=== PATIENT | female | born 1945 | race Caucasian/White ===

== ENCOUNTER → 2020-08-11 14:00 | Outpatient (REF) | payer BC, SELFPAY ==
--- NOTE | 2020-08-11 14:05 | CA_ITS ---
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 The visually estimated ejection fraction is between 60-65%. - There is mild mitral valve regurgitation. - There is mild tricuspid valve regurgitation. Findings Left Ventricle Normal left ventricular cavity size. There is normal left ventricular wall thickness. The left ventricular systolic function is normal. The visually estimated ejection fraction is between 60-65%. There is no evidence of regional wall motion abnormalities. Diastolic function is normal for age. Right Ventricle Normal right ventricular cavity size and systolic function. Atria The left atrium is normal in size. The right atrium is normal in size. Aortic Valve There is a normal trileaflet aortic valve. There is no aortic valve stenosis. There is no aortic valve regurgitation. Mitral Valve The mitral valve appears normal. There is mild mitral valve regurgitation. There is no mitral valve stenosis. Pulmonic Valve The pulmonic valve was not well visualized. Tricuspid Valve Normal tricuspid valve structure. There is mild tricuspid valve regurgitation. The pulmonary artery systolic pressure is normal. Great Vessels The aortic annulus, sinuses of valsalva, and asc aorta are normal in size. Venous The inferior vena cava is normal in size and collapses less than 50% with inspiration. Pericardium/Pleural There is no evidence of pericardial effusion. Prior Study Comparison No significant change compared to prior study dated: 07/31/2019. Measurements M-Mode Liner Measurements Normals - Women/Men AOV Cusps: 1.70 1.5-2.6 cm/m2 2D Linear Measurements IVSd: 0.67 0.6-0.9/0.6-1.0 cm LVIDd: 3.78 3.9-5.3/4.2-5.9 cm LVIDd Index: 2.98 2.4-3.2/2.2-3.1 cm/m2 LVIDs: 2.34 2.0-3.6 cm LVPWd: 0.60 0.7-1.1 cm Ao Root: 2.60 2.1-3.5 cm LA Diam: 2.80 2.7-3.8/3.0-4.0 cm LAIDs Index: 2.20 1.5-2.3 cm/m2 LV Mass: 77.37 67-162/88-224 g LV Mass Index: 60.92 43-95/49-115 g/m2 LVOT Diam: 2.00 3.0+(-)1.3 cm 2D Systolic Function EF 4C: 64.70 >55% EF 2C: 61.30 >55% EF BiP: 62.00 >55% Mitral Valve MV Pk E: 0.81 MV PK A: 0.43 MV Decel Time: 259.00 E/A: 1.90 E'Lateral: 8.92 E'Medial: 7.94 E/E' Med: 10.30 E/E' Lat: 9.10 PHT: 76.00 MVA PHT: 2.89 Decel Plumas: 3.14 Aortic Valve AoV Pk Manohar: 1.40 AoV Pk Grad: 8.00 LVOT LVOT Pk Manohar: 0.87 LVOT Mn Manohar: 0.57 LVOT VTI: 0.16 LVOT Pk Grad: 3.00 LVOT Mn Grad: 2.00 LVOT Diam: 2.00 LVOT Area: 3.14 Diastolic Function MV Pk E: 0.81 MV Pk A: 0.43 E/A: 1.90 E'Medial: 7.94 E/E' Med: 10.30 E' Laterial: 8.92 E/E' Lat: 9.10 Tricuspid Valve TR Pk Manohar: 2.56 TR Pk Grad: 26.00 RA Press: 8.00 Great Vessels Aorta Ao Root-2D: 2.60 2.0-3.7 cm Ao Asc: 2.80 2.1-3.4 cm Pulmonary Valve PV Pk Manohar: 0.87 Peak PV Grad: 3.00 Updated in Other Vendor System with Status of Final Sesar Rg MD electronically signed on 08/12/2020 1:11:09 PM with status of Final
== END ==
LOC: HO.CARD 14:00
PROVIDERS: Visit Provider Internal Medicine
DX: I48.0 Paroxysmal atrial fibrillation (principal)
CPT/HCPCS: 93306

== ENCOUNTER → 2020-09-01 14:54 | Outpatient (BNVA) | payer BC, SELFPAY | PROVIDERS: PCP Internal Medicine; Visit Provider Internal Medicine ==

== ENCOUNTER → 2021-03-31 14:58 | Outpatient (BNVA) | payer BC, SELFPAY | PROVIDERS: PCP Internal Medicine; Referring Provider Internal Medicine; Visit Provider Internal Medicine | DX: I48.19 Other persistent atrial fibrillation (principal); I10 Essential (primary) hypertension; E05.90 Thyrotoxicosis, unspecified without thyrotoxic crisis or storm; R53.83 Other fatigue; Z79.01 Long term (current) use of anticoagulants | CPT/HCPCS: 93005 ==

== ENCOUNTER → 2021-09-29 15:00 | Outpatient (BNVA) | payer BC, SELFPAY | PROVIDERS: PCP Internal Medicine; Referring Provider Internal Medicine; Visit Provider Internal Medicine | DX: I48.19 Other persistent atrial fibrillation (principal); I10 Essential (primary) hypertension; E05.90 Thyrotoxicosis, unspecified without thyrotoxic crisis or storm | CPT/HCPCS: 93005 ==

== ENCOUNTER 2022-01-27 14:18 | Outpatient (REF) | payer BC, SELFPAY | END 2022-01-27 14:19 | disposition home or self-care (01) | LOC: HO.LNP 14:18 | PROVIDERS: Visit Provider Internal Medicine | DX: R30.0 Dysuria (principal) | CPT/HCPCS: 87086 ==

== ENCOUNTER 2022-02-01 14:30 | Outpatient (REF) | payer BC, SELFPAY | END 2022-02-01 14:31 | disposition home or self-care (01) | LOC: HO.LAB 14:30 | PROVIDERS: PCP Internal Medicine; Visit Provider Internal Medicine | DX: R30.0 Dysuria (principal) | CPT/HCPCS: 87086 ==

== ENCOUNTER 2022-02-02 14:22 | Outpatient (REF) | payer BC, SELFPAY ==
[2022-02-02 15:18] LABS: Anion Gap 20 (12-20); Blood Urea Nitrogen 13 mg/dL (9-16); Calcium 9.9 mg/dL (8.4-10.2); Carbon Dioxide 26 mmol/L (22-29); Chloride 103 mmol/L (96-108); Estimated Glomerular Filt Rate > 60; Glucose Random 108 mg/dL (60-115); Potassium 5.3 mmol/L (3.3-5.1); Sodium 144 mmol/L (135-145)
[2022-02-03 18:20] LABS: Alanine Aminotransferase 151 U/L (0-31); Albumin Level 4.2 g/dL (3.5-5.0); Alkaline Phosphatase 210 U/L (39-117); Aspartate Amino Transferase 55 U/L (5-31); Bilirubin Direct 0.3 mg/dL (0.0-0.5); Bilirubin Total 0.8 mg/dL (0.0-1.0); C Reactive Protein 0.84 mg/dL (< or = 0.50); Lipase 113 U/L (8-78); Total Protein 7.8 g/dL (6.5-8.0)
== END 2022-02-02 14:23 | disposition home or self-care (01) ==
LOC: HO.LAB 14:22
PROVIDERS: Internal Medicine; PCP Internal Medicine; Visit Provider Internal Medicine
DX: I48.19 Other persistent atrial fibrillation (principal); R10.9 Unspecified abdominal pain; E03.9 Hypothyroidism, unspecified
CPT/HCPCS: 36415; 80048; 80076; 83690; 86140

== ENCOUNTER 2022-11-29 17:53 | Inpatient (IN) | payer BC, SELFPAY ==
--- NOTE | ~2022-11-29 | MR_ITS ---
EXAMINATION: MRI BRAIN WITHOUT CONTRAST CLINICAL INFORMATION: Transient ischemic attack. COMPARISON: CT angiogram of the head and neck 11/29/2022. TECHNIQUE: Multiplanar MR imaging of the brain was performed without contrast. 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 This finding is superimposed upon numerous foci of T2 FLAIR signal hyperintensity throughout the periventricular white matter that most likely represent a chronic manifestation of small vessel ischemia. No pathological magnetic susceptibility artifact. Intracranial vascular flow voids are maintained. There is no intracranial mass effect or midline shift. No abnormal extra-axial collection. Lateral and third ventricles are normal. No hydrocephalus. Midline structures including the cervicomedullary junction are normal. No acute bone marrow signal changes. There is no mastoid or middle ear effusion. There is a small retention cysts within the alveolar recess of the right maxillary sinus. Otherwise no active paranasal sinus disease. Globes and orbits are grossly symmetric. 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 This finding is superimposed upon numerous chronic small vessel ischemic changes within the periventricular white matter.
--- NOTE | ~2022-11-29 | CT_ITS ---
EXAMINATION: CT ANGIOGRAM HEAD CT ANGIOGRAM NECK CLINICAL INFORMATION: Intermittent aphasia. COMPARISON: Nuclear medicine thyroid scan from 11/16/2018. TECHNIQUE: Initial noncontrast library information technician imaging of the head and neck was performed. Noncontrast head CT was also performed. Test bolus sequences followed by intravenous administration 70 mL of Omnipaque 350. Helical imaging was performed in the axial plane from the aortic arch to the skull vertex. Delayed postcontrast imaging of the head was also performed. The data was processed at the angiography technologist's workstation for generation of MIP sequences. Angled MIPs and volume rendered reformatted images were also generated at an offline 3D workstation. Stenoses are assessed in accordance with NASCET criteria unless otherwise indicated. This CT examination was performed using dose optimization techniques as appropriate, variously including the following: *Automated exposure control. *Adjustment of mA and/or kV according to patient size (this includes techniques or standardized protocols for targeted exams where dose is matched to indication/reason for exam; i.e. extremities or head). *Use of iterative reconstruction technique. DLP: 1858 mGy-cm FINDINGS: CT Head: There is no evidence of acute intracranial hemorrhage or edematous territorial infarction. Solis-white matter differentiation is preserved. A few foci of hypoattenuation in the periventricular and deep white matter are consistent with mild microangiopathy. Proportional prominence of the ventricles and sulcal spaces without evidence of obstructive hydrocephalus. No abnormal mass effect or midline shift. No extra-axial fluid collections. No pathologic intra-axial enhancement or regional oligemia. No acute soft tissue or osseous abnormalities. Mild mucosal thickening of the paranasal sinuses. The mastoid air cells and middle ear cavities are clear. Periapical lucency associated with the mandibular left lateral incisor. CT Neck: There is a 2.4 cm slightly hypoattenuating nodule extending from the superolateral margin of the left thyroid lobe. Changes of right-sided hemithyroidectomy. The remaining cervical soft tissues are within normal limits. Straightening of the normal cervical lordosis. Mild degenerative anterolisthesis of C2 on C3 and C7 on T1. Advanced degenerative disc disease from C3-C7. Facet and uncovertebral joint arthropathy leads osseous encroachment on the neural foramina from C3-T3. CT Upper Chest: Moderate centrilobular. The visualized lung apices and upper mediastinum are within normal limits. Neck CTA: Aortic Arch: Normal contour and caliber. Classic 3 vessel branching pattern of the aortic arch. Great Vessel Origins: No significant stenosis of the branch origins. Right Common Carotid Artery: No focal stenosis or occlusion. Cervical Right Internal Carotid Artery: Calcific atherosclerotic disease of the carotid bulb and proximal internal carotid artery causing less than 50% stenosis. Left Common Carotid Artery: No focal stenosis or occlusion. Cervical Left Internal Carotid Artery: Mild calcific atherosclerotic disease of the carotid bulb and proximal internal carotid artery without flow-limiting stenosis. Cervical Right Vertebral Artery: Atherosclerotic disease causes high-grade stenosis of the origin. Otherwise, the V1-V3 segments are hypoplastic with concomitant decrease in caliber of the foramina transversarium. No additional focal stenosis or occlusion. Cervical Left Vertebral Artery: Dominant. High-grade stenosis of the origin. No additional focal stenosis or occlusion. Brain CTA: Intracranial Internal Carotid Arteries: Calcific atherosclerotic disease of the intracranial internal carotid arteries without occlusion or flow-limiting stenosis. Right Anterior Cerebral Artery: Normal A1 segment. Normal opacification of the distal AKILA segments. Left Anterior Cerebral Artery: The A1 segment is diminutive. Normal opacification of the distal AKILA segments. 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 Right Middle Cerebral Artery: Normal M1 segment of the MCA without focal stenosis or occlusion. Normal arborization of the distal segments. Left Middle Cerebral Artery: Normal M1 segment of the MCA without focal stenosis or occlusion. Normal arborization of the distal segments. Right Vertebral Artery: The V4 segment largely terminates as the posterior inferior cerebellar artery. Left Vertebral Artery: Normal V4 segment. Normal opacification of the proximal segments of the posterior inferior cerebellar artery. Basilar Artery: Normal without focal stenosis or occlusion. Normal appearance of the proximal superior cerebellar arteries. 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 Right Posterior Cerebral Artery: Normal P1 segment. Normal opacification of the distal TELECOMMUNICATIONS FIELD ENGINEER segments. Left Posterior Cerebral Artery: The P1 segment is diminutive. origin of the TELECOMMUNICATION[employer] FIELD ENGINEER with robust opacification of the posterior communicating artery. Normal opacification of the distal TELECOMM[employer]ICATION[employer] FIELD ENGINEER segments. Normal opacification of the superior sagittal, straight, transverse, and sigmoid sinuses. CT/CT angio head neck IMPRESSION: 1. No evidence of acute intracranial hemorrhage or edematous territorial infarction. 2. CTA of the head and neck without proximal occlusion. 3. Atherosclerotic disease causes high-grade stenoses of the origins of the vertebral arteries bilaterally. 4. 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 5. There is a 2.4 cm nodule associated with the left thyroid lobe. This was better evaluated on prior nuclear medicine thyroid scan.
[2022-11-29 18:02] VITALS: BP 160/90; BP 204/102; PULSE 111; PULSE 89; RESP 18; O2SAT 96; O2SAT 98; BMI 17.8
--- NOTE | 2022-11-29 18:21 | ECG_ITS ---
Test Reason : INCREASED CONFUSION Blood Pressure : / mmHG Vent. Rate : 115 BPM Atrial Rate : 000 BPM P-R Int : 000 ms QRS Dur : 070 ms QT Int : 346 ms P-R-T Axes : 000 -38 032 degrees QTc Int : 478 ms Atrial fibrillation with rapid ventricular response Left axis deviation Low voltage QRS Inferior infarct (cited on or before 27-SEP-2010) Cannot rule out Anteroseptal infarct (cited on or before 27-SEP-2010) Abnormal ECG When compared with ECG of 02-FEB-2019 17:19, Atrial fibrillation has replaced Sinus rhythm Vent. rate has increased BY 41 BPM Questionable change in initial forces of Septal leads Nonspecific T wave abnormality now evident in Inferior leads Referred By: Ines Suárez Electronically Signed By:Mathew Hou
--- NOTE | 2022-11-29 18:26 | ED.AMS ---
HPI - Altered Mental Status General Chief Complaint: Altered Mental Status Stated Complaint: INCR CONFUSION Time Seen by Provider: 11/29/22 18:01 Source: patient Mode of arrival: EMS Limitations: altered mental status History of Present Illness HPI narrative: Patient comes to the emergency room complaining of 2 episodes of having difficulty finding words but with normal speech and no other neurological deficits. Patient states that she has had anxiety and panic attacks in the past, but this has never happened. Patient very concerned about the ?weird sensation . At this time, patient states that she feels a little bit frustrated, still having a bit difficulty finding words. Patient states that she did not note the time when this happened. Patient states that she went to her neighbor's house for help and they called 911. Patient takes Eliquis Related Data Home Medications Medication Instructions Recorded Confirmed lisinopril 2.5 mg tablet 2.5 mg PO DAILY 03/31/21 04/04/22 methimazole 5 mg tablet 5 mg PO .5x week 09/29/21 04/04/22 Previous Rx's Medication Instructions Recorded apixaban 5 mg tablet (Eliquis) 5 mg PO BID #180 tabs 04/20/22 metoprolol succinate 25 mg 25 mg PO DAILY #90 caps 09/07/22 tablet,extended release 24 hr Allergies Allergy/AdvReac Type Severity Reaction Status Date / Time chlorpheniramine Allergy Unknown HIVES Verified 11/29/22 18:09 [CHLORPHENIRAMINE] Review of Systems Review of Systems: Constitutional : No Weight loss, No Fever, No Chills, No Night Sweats, No Fatigue, No Malaise ENT/Mouth : No Hearing loss, No Ear Pain, No Nasal Congestion, No Sinus Pain, No Hoarseness, No sore throat, No Rhinorrhea, No Swallowing Difficulty Eyes: No Eye Pain, No Swelling, No Redness, No Foreign Body, No Discharge, No Vision Changes Cardiovascular : No Chest Pain, No SOB, No Dyspnea on Exertion, No Orthopnea, No Edema, No Palpitations Respiratory : No Cough, No Sputum, No Wheezing, No Smoke Exposure, No Dyspnea Gastrointestinal : No Nausea, No Vomiting, No Diarrhea, No Constipation, No abdominal Pain, No Hematochezia, No Melena Genitourinary : no irregular bleeding, No Dysuria, No Urinary Frequency, No Hematuria, No Urinary Incontinence, No Urgency, No Flank Pain, No Urinary Flow Changes, No Hesitancy Musculoskeletal : No joint pain, No Myalgias, No Joint Swelling Skin : No Skin Lesions, No rash Neuro : No Weakness, No Numbness, No Paresthesias, No Loss of Consciousness, No Dizziness, No Headache was complaining of episodes of aphasia Psych : No Anxiety/Panic, No Depression, No SI/HI/AH/VH, No Social Issues, Heme/Lymph: No Bruising, No Bleeding,No Lymphadenopathy Endocrine : No Polyuria, No Polydipsia, No Temperature Intolerance [facility] Past Medical History Medical History Essential hypertension Hyperthyroidism PAF (paroxysmal atrial fibrillation) Surgical History History of lumpectomy of right breast History of tonsillectomy Family History Family History Father No problems noted. Mother No problems noted. Social History Social History Alcohol intake: never Patient Tobacco Use Status: Current everyday Tobacco user Smoked in Last 30 Days: Yes Use of substances other than those prescribed or required for medical reasons: No Advance Directives: No Advance Directives Information Provided: Yes Physical Exam ED Vital Signs: Vital Signs - 24 hr 11/29/22 18:02 11/29/22 20:00 Temperature 98.2 F Pulse Rate 111 H 93 Respiratory Rate 18 23 H Blood Pressure 204/102 H 173/93 H Pulse Oximetry 96 96 Oxygen Delivery Method Room Air Room Air BMI result Body Mass Index 17.8 Const Other: Appearance: Alert. Oriented X3. No acute distress. Eyes: Pupils equal, round and reactive to light. ENT: Pharynx normal. Neck: Normal inspection. Neck supple. No lymph nodes noted. No crepitus CVS: Normal heart rate and rhythm. Pulses normal. Normal S1 and S2 Respiratory: No respiratory distress. Breath sounds normal. No Wheezing. No rales Abdomen: Soft and nontender. No rigidity. No distention. Skin: Skin warm and dry. Normal skin color. Normal skin turgor. Extremities: No lower extremity edema. No Lacerations. No Rash Neuro: Oriented X 3. No motor deficit. No sensory deficit. Moving all extremities. No slurred speech. CN 2 through 12 grossly intact Psych: calm, cooperative, normal affect NIH Stroke Scale Internal: Initial- Upon Arrival Level of Consciousness: Alert Level of Consciousness Questions: Answers both questions correctly Level of Consciousness Commands: Performs both tasks correctly Best Gaze: Normal Visual: No visual loss Facial Palsy: Normal Motor Arm (Right): No drift Motor Arm (Left): No drift Motor Leg (Right): No drift Motor Leg (Left): No drift Limb Ataxia: Absent Sensory: Normal Best Language: No aphasia Dysarthia: Normal Extinction and Inattention: No abnormality Score: 0 Course Course Course Narrative: -patient states she is compliant with her medication, patient is on Eliquis -at this time, patient states that she is overall feeling better, denies any aphasia at this time. Medications Administered Discontinued Medications Generic Name Dose Route Start Last Admin Trade Name Freq PRN Reason Stop Dose Admin Iohexol 70 ml 11/29/22 19:58 11/29/22 19:58 Iohexol 350 Mg/Ml 100 Ml Infus..Btl IV 11/29/22 19:59 70 ml ONCE ONE Administration Medical Decision Making Medical Decision Making [facility] Narrative: -CTA of head and neck negative for intracranial hemorrhage or territorial infarction -NIH score 0 -patient is not sure of the onset of symptoms, patient a candidate for tPA, patient is on Eliquis -patient's labs do not show any acute significant abnormality, U tox negative. -I discussed labs and imaging with the patient, patient likely had a TIA -I discussed the patient with Dr. Leigh, patient being admitted Admission/Observation Consideration of admission/observation: Escalation of care including admission/observation considered Consult Healthcare Provider Management of the patient was discussed with: Hospitalist Lab Data [facility] Lab Attestation statement: I reviewed the patient's lab results. 11/29/22 18:46 11/29/22 18:46 Labs: Lab Results 11/29/22 11/29/22 11/29/22 Range/Units 18:46 18:46 18:46 WBC 9.9 (4.8-10.8) X10*3/uL RBC 4.91 (4.20-5.50) X10*6/uL Hgb 14.9 (12.0-16.0) g/dl Hct 44.6 (37.0-47.0) % MCV 90.8 (80.0-98.0) fL MCH 30.3 (27.0-33.0) pg MCHC 33.4 (31.0-35.0) g/dl RDW 12.7 (11.0-16.0) % Plt Count 305 (160-400) X10*3/uL MPV 11.1 (9.4-12.3) fL Immature Gran % (Auto) 0.3 (0.0-0.4) % Neut % (Auto) 72.6 (45-73) % Lymph % (Auto) 20.1 (20-40) % [place]ham % (Auto) 6.1 (2-11) % Eos % (Auto) 0.6 (0-4) % Baso % (Auto) 0.3 (0-2) % Lymph # (Auto) 2.0 (1.2-4.9) X10*3/uL [place] # (Auto) 0.6 (0.1-1.2) X10*3/uL Eos # (Auto) 0.1 (0.0-0.4) X10*3/uL Baso # (Auto) 0.0 (0.0-0.2) X10*3/uL Abs Immat Gran (auto) 0.03 (0.00-0.03) X10*3/uL Absolute Neuts (auto) 7.2 (2.0-8.3) x10*3/uL Absolute Nucleated RBC 0.000 (0.0-0.012) X10*3/uL Nucleated RBC % (auto) 0.0 (0.0-0.2) /100WBC PT 18.0 H (10.0-13.1) SEC INR 1.5 H (0.9-1.1) VBG pH (7.32-7.43) VBG pCO2 mmHg VBG pO2 mmHg VBG HCO3 (22-26) mmol/L VBG O2 Saturation % VBG Base Excess mmol/L Sodium 141 (135-145) mmol/L Potassium 3.4 D (3.3-5.1) mmol/L Chloride 102 (96-108) mmol/L Carbon Dioxide 25 (22-29) mmol/L Anion Gap 17 (12-20) BUN 12 (9-16) mg/dL Creatinine 0.73 (0.5-1.4) mg/dL Estim Creat Clear Calc 41.9 Estimated GFR > 60 Random Glucose 147 H (60-115) mg/dL Calcium 10.2 (8.4-10.2) mg/dL Magnesium 1.9 (1.6-2.6) mg/dL Total Bilirubin 1.4 H (0.0-1.0) mg/dL Direct Bilirubin 0.3 (0.0-0.5) mg/dL AST 24 (5-31) U/L ALT 24 (0-31) U/L Alkaline Phosphatase 81 (39-117) U/L Ammonia (13-55) umol/L Total Protein 8.1 H (6.5-8.0) g/dL Albumin 4.7 (3.5-5.0) g/dL TSH (0.32-4.0) uIU/mL Urine Color Urine Appearance Urine pH (5.0-9.0) Ur Specific Currie (1.005-1.025) Urine Protein (Neg-Trace) mg/dL Urine Glucose (UA) (Negative) mg/dL Urine Ketones (Negative) mg/dL Urine Blood (Negative) Urine Nitrite (Negative) Ur Leukocyte Esterase (Negative) Urine RBC (0-2) /HPF Urine WBC (0-5) /HPF Ur Squamous Epith Cells (0-2) /HPF Urine Bacteria (None Seen) Hyaline Casts (0-2) /LPF Urine Opiates Screen (Not Detect) Urine Fentanyl Screen (Not Detect) Ur Barbiturates Screen (Not Detect) Ur Phencyclidine Scrn (Not Detect) Ur Amphetamines Screen (Not Detect) U Benzodiazepines Scrn (Not Detect) Urine Cocaine Screen (Not Detect) U Marijuana (THC) Screen (Not Detect) Ethyl Alcohol < 10 mg/dL 11/29/22 11/29/22 11/29/22 Range/Units 18:46 18:46 18:46 WBC (4.8-10.8) X10*3/uL RBC (4.20-5.50) X10*6/uL Hgb (12.0-16.0) g/dl Hct (37.0-47.0) % MCV (80.0-98.0) fL MCH (27.0-33.0) pg MCHC (31.0-35.0) g/dl RDW (11.0-16.0) % Plt Count (160-400) X10*3/uL MPV (9.4-12.3) fL Immature Gran % (Auto) (0.0-0.4) % Neut % (Auto) (45-73) % Lymph % (Auto) (20-40) % Dillingham % (Auto) (2-11) % Eos % (Auto) (0-4) % Baso % (Auto) (0-2) % Lymph # (Auto) (1.2-4.9) X10*3/uL [place]illingham # (Auto) (0.1-1.2) X10*3/uL Eos # (Auto) (0.0-0.4) X10*3/uL Baso # (Auto) (0.0-0.2) X10*3/uL Abs Immat Gran (auto) (0.00-0.03) X10*3/uL Absolute Neuts (auto) (2.0-8.3) x10*3/uL Absolute Nucleated RBC (0.0-0.012) X10*3/uL Nucleated RBC % (auto) (0.0-0.2) /100WBC PT (10.0-13.1) SEC INR (0.9-1.1) VBG pH (7.32-7.43) VBG pCO2 mmHg VBG pO2 mmHg VBG HCO3 (22-26) mmol/L VBG O2 Saturation % VBG Base Excess mmol/L Sodium (135-145) mmol/L Potassium (3.3-5.1) mmol/L Chloride (96-108) mmol/L Carbon Dioxide (22-29) mmol/L Anion Gap (12-20) BUN (9-16) mg/dL Creatinine (0.5-1.4) mg/dL Estim Creat Clear Calc Estimated GFR Random Glucose (60-115) mg/dL Calcium (8.4-10.2) mg/dL Magnesium (1.6-2.6) mg/dL Total Bilirubin (0.0-1.0) mg/dL Direct Bilirubin (0.0-0.5) mg/dL AST (5-31) U/L ALT (0-31) U/L Alkaline Phosphatase (39-117) U/L Ammonia 21 (13-55) umol/L Total Protein (6.5-8.0) g/dL Albumin (3.5-5.0) g/dL TSH 0.42 (0.32-4.0) uIU/mL Urine Color Yellow Urine Appearance Clear Urine pH 5.5 (5.0-9.0) Ur Specific Currie <= 1.005 (1.005-1.025) Urine Protein Trace (Neg-Trace) mg/dL Urine Glucose (UA) Negative (Negative) mg/dL Urine Ketones Negative (Negative) mg/dL Urine Blood Small (1+) H (Negative) Urine Nitrite Negative (Negative) Ur Leukocyte Esterase Negative (Negative) Urine RBC 0-2 (0-2) /HPF Urine WBC 0-5 (0-5) /HPF Ur Squamous Epith Cells 0-2 (0-2) /HPF Urine Bacteria None Seen (None Seen) Hyaline Casts 0-2 (0-2) /LPF Urine Opiates Screen (Not Detect) Urine Fentanyl Screen (Not Detect) Ur Barbiturates Screen (Not Detect) Ur Phencyclidine Scrn (Not Detect) Ur Amphetamines Screen (Not Detect) U Benzodiazepines Scrn (Not Detect) Urine Cocaine Screen (Not Detect) U Marijuana (THC) Screen (Not Detect) Ethyl Alcohol mg/dL 11/29/22 11/29/22 Range/Units 18:46 19:00 WBC (4.8-10.8) X10*3/uL RBC (4.20-5.50) X10*6/uL Hgb (12.0-16.0) g/dl Hct (37.0-47.0) % MCV (80.0-98.0) fL MCH (27.0-33.0) pg MCHC (31.0-35.0) g/dl RDW (11.0-16.0) % Plt Count (160-400) X10*3/uL MPV (9.4-12.3) fL Immature Gran % (Auto) (0.0-0.4) % Neut % (Auto) (45-73) % Lymph % (Auto) (20-40) % Dillingham % (Auto) (2-11) % Eos % (Auto) (0-4) % Baso % (Auto) (0-2) % Lymph # (Auto) (1.2-4.9) X10*3/uL [place]ham # (Auto) (0.1-1.2) X10*3/uL Eos # (Auto) (0.0-0.4) X10*3/uL Baso # (Auto) (0.0-0.2) X10*3/uL Abs Immat Gran (auto) (0.00-0.03) X10*3/uL Absolute Neuts (auto) (2.0-8.3) x10*3/uL Absolute Nucleated RBC (0.0-0.012) X10*3/uL Nucleated RBC % (auto) (0.0-0.2) /100WBC PT (10.0-13.1) SEC INR (0.9-1.1) VBG pH 7.39 (7.32-7.43) VBG pCO2 54 mmHg VBG pO2 31 mmHg VBG HCO3 33 H (22-26) mmol/L VBG O2 Saturation 42.0 % VBG Base Excess 6.5 mmol/L Sodium (135-145) mmol/L Potassium (3.3-5.1) mmol/L Chloride (96-108) mmol/L Carbon Dioxide (22-29) mmol/L Anion Gap (12-20) BUN (9-16) mg/dL Creatinine (0.5-1.4) mg/dL Estim Creat Clear Calc Estimated GFR Random Glucose (60-115) mg/dL Calcium (8.4-10.2) mg/dL Magnesium (1.6-2.6) mg/dL Total Bilirubin (0.0-1.0) mg/dL Direct Bilirubin (0.0-0.5) mg/dL AST (5-31) U/L ALT (0-31) U/L Alkaline Phosphatase (39-117) U/L Ammonia (13-55) umol/L Total Protein (6.5-8.0) g/dL Albumin (3.5-5.0) g/dL TSH (0.32-4.0) uIU/mL Urine Color Urine Appearance Urine pH (5.0-9.0) Ur Specific Currie (1.005-1.025) Urine Protein (Neg-Trace) mg/dL Urine Glucose (UA) (Negative) mg/dL Urine Ketones (Negative) mg/dL Urine Blood (Negative) Urine Nitrite (Negative) Ur Leukocyte Esterase (Negative) Urine RBC (0-2) /HPF Urine WBC (0-5) /HPF Ur Squamous Epith Cells (0-2) /HPF Urine Bacteria (None Seen) Hyaline Casts (0-2) /LPF Urine Opiates Screen Not Detected (Not Detect) Urine Fentanyl Screen Not Detected (Not Detect) Ur Barbiturates Screen Not Detected (Not Detect) Ur Phencyclidine Scrn Not Detected (Not Detect) Ur Amphetamines Screen Not Detected (Not Detect) U Benzodiazepines Scrn Not Detected (Not Detect) Urine Cocaine Screen Not Detected (Not Detect) U Marijuana (THC) Screen Not Detected (Not Detect) Ethyl Alcohol mg/dL Independent Interpretation I performed an independent interpretation of an: CT Scan Interpretation: FINDINGS: CT Head: There is no evidence of acute intracranial hemorrhage or edematous territorial infarction. Solis-white matter differentiation is preserved. A few foci of hypoattenuation in the periventricular and deep white matter are consistent with mild microangiopathy. Proportional prominence of the ventricles and sulcal spaces without evidence of obstructive hydrocephalus. No abnormal mass effect or midline shift. No extra-axial fluid collections. No pathologic intra-axial enhancement or regional oligemia. No acute soft tissue or osseous abnormalities. Mild mucosal thickening of the paranasal sinuses. The mastoid air cells and middle ear cavities are clear. Periapical lucency associated with the mandibular left lateral incisor. CT Neck: There is a 2.4 cm slightly hypoattenuating nodule extending from the superolateral margin of the left thyroid lobe. Changes of right-sided hemithyroidectomy. The remaining cervical soft tissues are within normal limits. Straightening of the normal cervical lordosis. Mild degenerative anterolisthesis of C2 on C3 and C7 on T1. Advanced degenerative disc disease from C3-C7. Facet and uncovertebral joint arthropathy leads osseous encroachment on the neural foramina from C3-T3. CT Upper Chest: Moderate centrilobular. The visualized lung apices and upper mediastinum are within normal limits. Neck CTA: Aortic Arch: Normal contour and caliber. Classic 3 vessel branching pattern of the aortic arch. Great Vessel Origins: No significant stenosis of the branch origins. Right Common Carotid Artery: No focal stenosis or occlusion. Cervical Right Internal Carotid Artery: Calcific atherosclerotic disease of the carotid bulb and proximal internal carotid artery causing less than 50% stenosis. Left Common Carotid Artery: No focal stenosis or occlusion. Cervical Left Internal Carotid Artery: Mild calcific atherosclerotic disease of the carotid bulb and proximal internal carotid artery without flow-limiting stenosis. Cervical Right Vertebral Artery: Atherosclerotic disease causes high-grade stenosis of the origin. Otherwise, the V1-V3 segments are hypoplastic with concomitant decrease in caliber of the foramina transversarium. No additional focal stenosis or occlusion. Cervical Left Vertebral Artery: Dominant. High-grade stenosis of the origin. No additional focal stenosis or occlusion. Brain CTA: Intracranial Internal Carotid Arteries: Calcific atherosclerotic disease of the intracranial internal carotid arteries without occlusion or flow-limiting stenosis. Right Anterior Cerebral Artery: Normal A1 segment. Normal opacification of the distal AKILA segments. Left Anterior Cerebral Artery: The A1 segment is diminutive. Normal opacification of the distal AKILA segments. 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 Right Middle Cerebral Artery: Normal M1 segment of the MCA without focal stenosis or occlusion. Normal arborization of the distal segments. Left Middle Cerebral Artery: Normal M1 segment of the MCA without focal stenosis or occlusion. Normal arborization of the distal segments. Right Vertebral Artery: The V4 segment largely terminates as the posterior inferior cerebellar artery. Left Vertebral Artery: Normal V4 segment. Normal opacification of the proximal segments of the posterior inferior cerebellar artery. Basilar Artery: Normal without focal stenosis or occlusion. Normal appearance of the proximal superior cerebellar arteries. 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 Right Posterior Cerebral Artery: Normal P1 segment. Normal opacification of the distal [employer] segments. Left Posterior Cerebral Artery: The P1 segment is diminutive. origin of the [employer] with robust opacification of the posterior communicating artery. Normal opacification of the distal [employer] segments. Normal opacification of the superior sagittal, straight, transverse, and sigmoid sinuses. CT/CT angio head neck IMPRESSION: 1.? No evidence of acute intracranial hemorrhage or edematous territorial infarction. 2.? CTA of the head and neck without proximal occlusion. 3.? Atherosclerotic disease causes high-grade stenoses of the origins of the vertebral arteries bilaterally. 4.? 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 5.? There is a 2.4 cm nodule associated with the left thyroid lobe. This was better evaluated on prior nuclear medicine thyroid scan. ? Critical Care Time Critical Care Time Critical Care Time: Yes Total Critical Care Time: 60 Attestation: I have personally provided critical care time. Time includes review of lab data, radiology results, discussion with consultants, and monitoring for potential decompensation. Intervention performed as documented. Discharge Plan Discharge Clinical Impression: TIA (transient ischemic attack) Patient Disposition: Admitted As Inpatient Prescriptions: No Action Eliquis 5 mg tablet 5 mg PO BID Qty: 180 3RF metoprolol succinate 25 mg tablet extended release 24 hr 25 mg PO DAILY Qty: 90 3RF lisinopril 2.5 mg tablet 2.5 mg PO DAILY methimazole 5 mg tablet 5 mg PO .5x week
--- NOTE | 2022-11-29 18:44 | MHC.EDTECH ---
EKG completed and signed by
[2022-11-29 19:02] LABS: MANUAL DIFF FLAG NO
[2022-11-29 19:04] LABS: Basophils Percent Auto 0.3 % (0-2); Eosinophils Absolute Auto 0.1 X10*3/uL (0.0-0.4); Eosinophils Percent Auto 0.6 % (0-4); Hematocrit 44.6 % (37.0-47.0); Hemoglobin 14.9 g/dl (12.0-16.0); Imm Gran Abs Auto 0.03 X10*3/uL (0.00-0.03); Imm Gran Pct Auto 0.3 % (0.0-0.4); Lymphocytes Percent Auto 20.1 % (20-40); Mean Corpuscular HGB Conc 33.4 g/dl (31.0-35.0); Mean Corpuscular Hemoglobin 30.3 pg (27.0-33.0); Mean Corpuscular Volume 90.8 fL (80.0-98.0); Mean Platelet Volume 11.1 fL (9.4-12.3); Monocytes Absolute Auto 0.6 X10*3/uL (0.1-1.2); Monocytes Percent Auto 6.1 % (2-11); Neutrophils Absolute Auto 7.2 x10*3/uL (2.0-8.3); Neutrophils Percent Auto 72.6 % (45-73); Platelet Count 305 X10*3/uL (160-400); Red Blood Count 4.91 X10*6/uL (4.20-5.50); Red Cell Distribution Width 12.7 % (11.0-16.0); White Blood Count 9.9 X10*3/uL (4.8-10.8)
[2022-11-29 19:06] LABS: Appearance Urine Clear; Color Urine Yellow; Glucose Urine UA Negative (Negative); Leukocyte Esterase Urine Negative (Negative); Nitrite Urine Negative (Negative); PH 5.5 (5.0-9.0); Specific Gravity - Urine <= 1.005 (1.005-1.025); UMIC TRIGGER UACC YES; Urine Blood Small (1+) (Negative); Urine Ketones Negative (Negative); Urine Protein Trace mg/dL (Neg-Trace)
[2022-11-29 19:09] LABS: INTERNATIONAL NORM RATIO 1.5 (0.9-1.1)
[2022-11-29 19:12] LABS: Ammonia 21 umol/L (13-55)
[2022-11-29 19:16] LABS: Amphetamine Screen Urine Not Detected (Not Detect); Cannabinoid Screen Urine Not Detected (Not Detect); Fentanyl, urine Not Detected (Not Detect); Opiate Screen Urine Not Detected (Not Detect); Phencyclidine Screen Urine Not Detected (Not Detect)
[2022-11-29 19:16] LABS: VBG Base Excess 6.5 mmol/L; VBG HCO3 33 mmol/L (22-26); VBG pCO2 54 mmHg; VBG pH 7.39 (7.32-7.43); VBG pO2 31 mmHg
[2022-11-29 19:17] LABS: Bacteria Urine None Seen (None Seen); Hyaline Casts Urine 0-2 /LPF (0-2); RBC Urine 0-2 /HPF (0-2); Squamous Epithelial Cell Urine 0-2 /HPF (0-2); WBC Urine 0-5 /HPF (0-5)
[2022-11-29 19:19] LABS: Barbiturates, Urine Not Detected (Not Detect); Benzodiazepines Screen Urine Not Detected (Not Detect); Cocaine Screen Urine Not Detected (Not Detect)
[2022-11-29 19:20] LABS: Venous Blood Gas Refer to POC result
[2022-11-29 19:25] LABS: Alanine Aminotransferase 24 U/L (0-31); Albumin Level 4.7 g/dL (3.5-5.0); Alkaline Phosphatase 81 U/L (39-117); Anion Gap 17 (12-20); Aspartate Amino Transferase 24 U/L (5-31); Bilirubin Direct 0.3 mg/dL (0.0-0.5); Bilirubin Total 1.4 mg/dL (0.0-1.0); Blood Urea Nitrogen 12 mg/dL (9-16); Calcium 10.2 mg/dL (8.4-10.2); Carbon Dioxide 25 mmol/L (22-29); Chloride 102 mmol/L (96-108); Creatinine Clr Calc Pharmacy 41.9; Estimated Glomerular Filt Rate > 60; Ethanol < 10 mg/dL; Glucose Random 147 mg/dL (60-115); Magnesium 1.9 mg/dL (1.6-2.6); Potassium 3.4 mmol/L (3.3-5.1); Sodium 141 mmol/L (135-145); Total Protein 8.1 g/dL (6.5-8.0)
[2022-11-29 19:42] LABS: TSH reflex Free T4 0.42 uIU/mL (0.32-4.0)
[2022-11-29] MEDS: iohexoL 350 MG/ML 100 ML INFUS..BTL 70 ML IV (19:58)
[2022-11-29 20:00] VITALS: BP 173/93; PULSE 93; RESP 23; TEMP 36.8; O2SAT 96
--- NOTE | 2022-11-29 21:58 | PHA.MEDREC ---
Pharmacy Consult ? Medication Reconciliation Pharmacy has completed the medication reconciliation. Patient poor historian and was confused but had list of medications. Provider also at bedside and when I asked the patient about her Eliquis not being filled since September, she noted that she was getting her pills from [facility]. Also noted that she had been cutting her Eliquis in half because of her weight. Used combination of patient history and claim history.
[2022-11-29 22:00] VITALS: BP 182/106; PULSE 88; RESP 20; TEMP 37; O2SAT 99
[2022-11-29 22:03] VITALS: BP 164/84; PULSE 98; RESP 16; TEMP 37; O2SAT 99
[2022-11-29] MEDS: Atorvastatin Calcium 80 MG TABLET PO (22:23)
[2022-11-29] MEDS: Metoprolol Succinate ER 25 MG TAB.ER.24H PO (22:23)
[2022-11-29] MEDS: Aspirin Enteric Coated 81 MG TABLET.DR PO (22:23)
[2022-11-29] MEDS: Apixaban 5 MG TABLET PO (22:23)
[2022-11-29] MEDS: hydrOXYzine HCL 25 MG TABLET PO (22:28)
[2022-11-29 23:45] VITALS: BP 139/73; PULSE 74; RESP 17; TEMP 36.8; O2SAT 97
[2022-11-30] VITALS: BP 165/87; PULSE 70; RESP 16; TEMP 36.1; O2SAT 96
--- NOTE | 2022-11-30 00:14 | PC.NURSE ---
Attempted to call report to [phone]. Answering democrat stated that nurse is in with a patient and will call back.
[2022-11-30 00:56] VITALS: BMI 17.9
[2022-11-30 03:04] VITALS: BP 109/66; PULSE 52; RESP 14; TEMP 36.2; O2SAT 99
[2022-11-30 06:31] LABS: MANUAL DIFF FLAG NO
--- NOTE | 2022-11-30 06:43 | P.HPHOSP_ITS ---
History of Present Illness Date of Service: 11/29/22 Chief Complaint: Word-finding difficulty 77-year-old female with past medical history of hyperthyroidism, AFib on Eliquis, hypertension, presents the hospital with complaints of word-finding difficulty and feeling funny . Patient reports that she went to visit her horse, on the way back home she started having a funny feeling. She can not really describe the feeling in more detail but said when she got home she got on the phone and was having difficulty finding words. This was very unusual for her which made her feel even more on easy and anxious. She says that she has history of anxiety but this was different. She reports no weakness numbness or tingling in her upper or lower extremities, no facial droop, no headache, no change in vision, no dizziness, no chest pain palpitations, no abdominal pain nausea or vomiting, no diarrhea constipation, no urinary symptoms. When I asked the patient about her compliance with Eliquis reports that she does sometimes miss her doses and as well as taking 2.5 after discussing with pharmacy. Arrival to the ED patient is slightly hypertensive with blood pressure of to 0 4/102, spontaneously normalized labs are also significant for WBC count of 9.9, hemoglobin of 14.9, hematocrit of 44.6, labs otherwise unremarkable, CTA of the head and neck negative. Urine drug screen negative. Review of Systems Review of Systems: Yes all other systems are reviewed and are negative [facility] Medical History Essential hypertension Hyperthyroidism PAF (paroxysmal atrial fibrillation) Family History Father No problems noted. Mother No problems noted. Surgical History History of lumpectomy of right breast History of tonsillectomy Social History Alcohol intake: never Patient Tobacco Use Status: Never used Tobacco Smoked in Last 30 Days: Yes Use of substances other than those prescribed or required for medical reasons: No Advance Directives: No Advance Directives Information Provided: Yes Nutrition Risks: No Nutritional Risk Meds Allergies Allergy/AdvReac Type Severity Reaction Status Date / Time chlorpheniramine Allergy Unknown HIVES Verified 11/29/22 18:09 [CHLORPHENIRAMINE] Active Medications: Current Medications Acetaminophen (Acetaminophen 325 Mg Tablet) 650 mg PO Q6H PRN PRN Reason: Pain, Mild (Pain Scale 1-3) Apixaban (Apixaban 5 Mg Tablet) 5 mg PO BID [facility] Last Admin: 11/29/22 22:23 Dose: 5 mg Aspirin (Aspirin Enteric Coated 81 Mg Tablet.Dr) 81 mg PO DAILY [facility] Last Admin: 11/29/22 22:23 Dose: 81 mg Atorvastatin Calcium (Atorvastatin Calcium 80 Mg Tablet) 80 mg PO BEDTIME [facility] Last Admin: 11/29/22 22:23 Dose: 80 mg Lisinopril (Lisinopril 5 Mg Tablet) 5 mg PO DAILY [facility]; Protocol Melatonin (Melatonin 3 Mg Tablet) 6 mg PO BEDTIME PRN PRN Reason: Insomnia Methimazole (Methimazole 10 Mg Tablet) 10 mg PO DAILY [facility] Metoprolol Succinate (Metoprolol Succinate Er 25 Mg Tab.Er.24h) 25 mg PO DAILY [facility]; Protocol Last Admin: 11/29/22 22:23 Dose: 25 mg Ondansetron HCl (Ondansetron Hcl 4 Mg/2 Ml Vial) 4 mg IVPUSH Q8H PRN PRN Reason: Nausea and Vomiting Pharmacy Consult (Consult Rx Perform Med Rec) 1 each MISCELLANE ONCE PRN PRN Reason: Consult order Home Medications Medication Instructions Recorded Confirmed Last Taken Type methimazole 5 mg tablet 10 mg PO DAILY 09/29/21 11/29/22 11/29/22 History lisinopril 5 mg tablet 5 mg PO DAILY 11/29/22 11/29/22 11/29/22 History Physical Exam Vital Signs and Narrative: Vital Signs: Last Vital Signs Temp 97.2 F 11/30/22 03:04 Pulse 52 11/30/22 03:04 Resp 14 11/30/22 03:04 BP 109/66 11/30/22 03:04 Pulse Ox 99 11/30/22 03:04 O2 Del Method Room Air 11/30/22 03:04 BMI result Body Mass Index 17.9 Const: General: cooperative and no acute distress Orientation/consciousness: patient oriented x3 Eyes: General: appearance normal, both eyes and all related structures Pupils: Equal, round and reactive pupils present Resp: Effort & Inspection: normal respiratory effort Auscultation: clear to auscultation bilaterally Cardio: Rate: regular rate Rhythm: regular rhythm GI: Palpation (GI): Soft to palpation Auscultation: normal bowel sounds Skin: General skin exam: no rashes or lesions noted Neuro: Other: No neurological deficits, no aphasia, cranial nerves 2-12 intact, strength 5/5 in all extremities General: patient oriented x3 Cranial nerves: Yes Equal, round and reactive pupils present Cognition (Neuro): normal cognition Extrem: General: Yes normal to inspection and Yes no pedal edema Results Labs 11/29/22 18:46 11/29/22 18:46 Labs: Laboratory Results - last 24 hr 11/29/22 11/29/22 11/29/22 18:46 18:46 18:46 MCV 90.8 MCH 30.3 MCHC 33.4 RDW 12.7 Plt Count 305 MPV 11.1 Immature Gran % (Auto) 0.3 Neut % (Auto) 72.6 Lymph % (Auto) 20.1 [place] % (Auto) 6.1 Eos % (Auto) 0.6 Baso % (Auto) 0.3 Lymph # (Auto) 2.0 [place] # (Auto) 0.6 Eos # (Auto) 0.1 Baso # (Auto) 0.0 Abs Immat Gran (auto) 0.03 Absolute Neuts (auto) 7.2 Absolute Nucleated RBC 0.000 Nucleated RBC % (auto) 0.0 PT 18.0 H INR 1.5 H VBG pH VBG pCO2 VBG pO2 VBG HCO3 VBG O2 Saturation VBG Base Excess Anion Gap 17 Estim Creat Clear Calc 41.9 Estimated GFR > 60 Random Glucose 147 H Calcium 10.2 Magnesium 1.9 Total Bilirubin 1.4 H Direct Bilirubin 0.3 AST 24 ALT 24 Alkaline Phosphatase 81 Ammonia Total Protein 8.1 H Albumin 4.7 TSH Urine Color Urine Appearance Urine pH Ur Specific [place] Urine Protein Urine Glucose (UA) Urine Ketones Urine Blood Urine Nitrite Ur Leukocyte Esterase Urine RBC Urine WBC Ur Squamous Epith Cells Urine Bacteria Hyaline Casts Urine Opiates Screen Urine Fentanyl Screen Ur Barbiturates Screen Ur Phencyclidine Scrn Ur Amphetamines Screen U Benzodiazepines Scrn Urine Cocaine Screen U Marijuana (THC) Screen Ethyl Alcohol < 10 11/29/22 11/29/22 11/29/22 18:46 18:46 18:46 MCV MCH MCHC RDW Plt Count MPV Immature Gran % (Auto) Neut % (Auto) Lymph % (Auto) [place] % (Auto) Eos % (Auto) Baso % (Auto) Lymph # (Auto) [place] # (Auto) Eos # (Auto) Baso # (Auto) Abs Immat Gran (auto) Absolute Neuts (auto) Absolute Nucleated RBC Nucleated RBC % (auto) PT INR VBG pH VBG pCO2 VBG pO2 VBG HCO3 VBG O2 Saturation VBG Base Excess Anion Gap Estim Creat Clear Calc Estimated GFR Random Glucose Calcium Magnesium Total Bilirubin Direct Bilirubin AST ALT Alkaline Phosphatase Ammonia 21 Total Protein Albumin TSH 0.42 Urine Color Yellow Urine Appearance Clear Urine pH 5.5 Ur Specific [place] <= 1.005 Urine Protein Trace Urine Glucose (UA) Negative Urine Ketones Negative Urine Blood Small (1+) H Urine Nitrite Negative Ur Leukocyte Esterase Negative Urine RBC 0-2 Urine WBC 0-5 Ur Squamous Epith Cells 0-2 Urine Bacteria None Seen Hyaline Casts 0-2 Urine Opiates Screen Urine Fentanyl Screen Ur Barbiturates Screen Ur Phencyclidine Scrn Ur Amphetamines Screen U Benzodiazepines Scrn Urine Cocaine Screen U Marijuana (THC) Screen Ethyl Alcohol 11/29/22 11/29/22 18:46 19:00 MCV MCH MCHC RDW Plt Count MPV Immature Gran % (Auto) Neut % (Auto) Lymph % (Auto) [place] % (Auto) Eos % (Auto) Baso % (Auto) Lymph # (Auto) [place] # (Auto) Eos # (Auto) Baso # (Auto) Abs Immat Gran (auto) Absolute Neuts (auto) Absolute Nucleated RBC Nucleated RBC % (auto) PT INR VBG pH 7.39 VBG pCO2 54 VBG pO2 31 VBG HCO3 33 H VBG O2 Saturation 42.0 VBG Base Excess 6.5 Anion Gap Estim Creat Clear Calc Estimated GFR Random Glucose Calcium Magnesium Total Bilirubin Direct Bilirubin AST ALT Alkaline Phosphatase Ammonia Total Protein Albumin TSH Urine Color Urine Appearance Urine pH Ur Specific [place] Urine Protein Urine Glucose (UA) Urine Ketones Urine Blood Urine Nitrite Ur Leukocyte Esterase Urine RBC Urine WBC Ur Squamous Epith Cells Urine Bacteria Hyaline Casts Urine Opiates Screen Not Detected Urine Fentanyl Screen Not Detected Ur Barbiturates Screen Not Detected Ur Phencyclidine Scrn Not Detected Ur Amphetamines Screen Not Detected U Benzodiazepines Scrn Not Detected Urine Cocaine Screen Not Detected U Marijuana (THC) Screen Not Detected Ethyl Alcohol Imaging Radiologist's Impressions: Impressions Head/Neck CTA 11/29/22 20:05 IMPRESSION: 1. No evidence of acute intracranial hemorrhage or edematous territorial infarction. 2. CTA of the head and neck without proximal occlusion. 3. Atherosclerotic disease causes high-grade stenoses of the origins of the vertebral arteries bilaterally. 4. 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 5. There is a 2.4 cm nodule associated with the left thyroid lobe. This was better evaluated on prior nuclear medicine thyroid scan. Assessment and Plan (1) TIA (transient ischemic attack): Status: Acute Plan This is a 77-year-old female with history of persistent AFib, hyperthyroidism, presents the hospital with complaints of word-finding difficulty # CVA - TIA versus stroke - CTA of head and neck negative - patient does have history of AFib with poor compliance on Eliquis which makes her risk of having a CVA high - will obtain MRI in a.m. - lipid battery, - will start her on aspirin and statin, - I had an extensive discussion about importance of cough [place] with Eliquis and reducing her risk of CVA, patient seems to understand - PT OT - neurology consult # hyperthyroidism - continue methimazole # hypertension - stable - allow for permissive hypertension # AFib - continue full-dose Eliquis - continue metoprolol DVT prophylaxis: Eliquis Time Spent With Patient Time: Total time managing care of this patient today ____ minutes. Quality Stroke Does the patient have a stroke diagnosis?: No VTE Prior VTE?: No VTE Risk Level:: Medical - low VTE Device Contraindication: Treatment Not Indicated VTE Drug Contraindication: N/A - Med Ordered
[2022-11-30 06:47] LABS: Basophils Percent Auto 0.4 % (0-2); Eosinophils Absolute Auto 0.1 X10*3/uL (0.0-0.4); Eosinophils Percent Auto 1.6 % (0-4); Hematocrit 40.7 % (37.0-47.0); Hemoglobin 13.7 g/dl (12.0-16.0); Imm Gran Abs Auto 0.03 X10*3/uL (0.00-0.03); Imm Gran Pct Auto 0.3 % (0.0-0.4); Lymphocytes Absolute Auto 3.7 X10*3/uL (1.2-4.9); Mean Corpuscular HGB Conc 33.7 g/dl (31.0-35.0); Mean Corpuscular Hemoglobin 30.3 pg (27.0-33.0); Mean Platelet Volume 10.8 fL (9.4-12.3); Monocytes Absolute Auto 0.8 X10*3/uL (0.1-1.2); Monocytes Percent Auto 9.1 % (2-11); Neutrophils Absolute Auto 4.2 x10*3/uL (2.0-8.3); Neutrophils Percent Auto 47.6 % (45-73); Platelet Count 243 X10*3/uL (160-400); Red Blood Count 4.52 X10*6/uL (4.20-5.50); Red Cell Distribution Width 12.6 % (11.0-16.0); White Blood Count 8.9 X10*3/uL (4.8-10.8)
[2022-11-30 07:02] LABS: Cholesterol 180 mg/dL; HDL Cholesterol 44 mg/dL; LDL Cholesterol Calculated 124 mg/dl; Triglycerides 60 mg/dL
[2022-11-30 07:07] LABS: Anion Gap 13 (12-20); Blood Urea Nitrogen 12 mg/dL (9-16); Calcium 9.7 mg/dL (8.4-10.2); Carbon Dioxide 24 mmol/L (22-29); Chloride 109 mmol/L (96-108); Creatinine Clr Calc Pharmacy 52.4; Estimated Glomerular Filt Rate > 60; Glucose Random 106 mg/dL (60-115); Potassium 3.5 mmol/L (3.3-5.1); Sodium 142 mmol/L (135-145)
[2022-11-30 07:08] VITALS: BP 118/88; PULSE 67; RESP 20; TEMP 36.3; O2SAT 100
--- NOTE | 2022-11-30 09:38 | MHC.CM.PN ---
FRANCO 11/30/22 DELIVERED TO BEDSIDE AND PLACED IN CHART, EMR REVIEWED, PT ADMITTED W/?TIA, CM MET W/PT WHO REPORTS SHE LIVES ALONE, IS INDEP W/ALL CARE, DRIVES, DENIES USE OF DME/HOME SERVICES, PT DENIES NEED FOR SERVICES AND IS AMBULATING AROUND ROOM AND TALKING ON PHONE, PT REPORTS HER ONLY CONCERN IS HER SPEECH ALTHOUGH DOES REPORT IT IS IMPROVING. PT VERIFIES PCP IS Roxana MEDELLIN AND 1 BOOSTER, AND PT EDUCATED ON AND WILL COMPLETE A HCP NAMING HER FRIEND DENNIS MONTIEL [phone] HER [facility] W/NO ALTERNATE CHOSEN AT THIS TIME. ANTIC D/C HOME NO SERVICES ONCE MEDICALLY CLEARED.
[2022-11-30] MEDS: Aspirin Enteric Coated 81 MG TABLET.DR PO (09:51)
[2022-11-30] MEDS: Apixaban 5 MG TABLET PO (09:51)
[2022-11-30] MEDS: lisinopriL 5 MG TABLET PO (09:51)
[2022-11-30] MEDS: Metoprolol Succinate ER 25 MG TAB.ER.24H PO (09:51)
[2022-11-30] MEDS: methIMAzole 10 MG TABLET PO (09:51)
--- NOTE | 2022-11-30 09:56 | PM.DS ---
DS: Providers Provider Date of Service: 11/30/22 Date of admission: 11/29/22 21:41 Primary care physician: Geraldo Eddy MD Consults: 11/29/22 22:03 Consult to Neurology Routine Consulting Provider: [facility] Reason for consultation: TIA Has provider been notified: No DS: Diagnosis Discharge Diagnosis (1) TIA (transient ischemic attack): Status: Acute DS: Summary Hospital Course Hospital Course: Chief Complaint: Word-finding difficulty 77-year-old female with past medical history of hyperthyroidism, AFib on Eliquis, hypertension, presents the hospital with complaints of word-finding difficulty and feeling funny .? Patient reports that she went to visit her horse, on the way back home she started having a funny feeling.? She can not really describe the feeling in more detail but said when she got home she got on the phone and was having difficulty finding words.? This was very unusual for her which made her feel even more on easy and anxious.? She says that she has history of anxiety but this was different.? She reports no weakness numbness or tingling in her upper or lower extremities, no facial droop, no headache, no change in vision, no dizziness, no chest pain palpitations, no abdominal pain nausea or vomiting, no diarrhea constipation, no urinary symptoms.? When I asked the patient about her compliance with Eliquis reports that she does sometimes miss her doses and as well as taking 2.5 after discussing with pharmacy.? Arrival to the ED patient is slightly hypertensive with blood pressure of to 0 4/102, spontaneously normalized labs are also significant for WBC count of 9.9, hemoglobin of 14.9, hematocrit of 44.6, labs otherwise unremarkable, CTA of the head and neck negative.? Urine drug screen negative. Hospital course: She presented with transient word finding difficulty, CT head and neck showed no acute finding, MRI however shows an acute cortical infarct within the vascular territory of left middle cerebral artery... She take eliquis for afib and we are adding baby aspirin, and to take Lipitor for HLD LDL 128, she has been advised to stay regular with Eliquis at 5 mg bid, she admits that has not been taking it on regular basis Time Spent with Patient Time attestation: Total time managing care of this patient today ____ minutes. Discharge coordination time: Greater than 30 minutes Quality: Safe Use of Opioids Does Pt have an Active Cancer Diagnosis on the Problem List?: No Quality: Stroke Does the patient have a stroke diagnosis?: No Physical Exam Vital Signs: Vital Signs: Last Vital Signs Temp 97.4 F 11/30/22 07:08 Pulse 67 11/30/22 07:08 Resp 20 11/30/22 07:08 BP 118/88 11/30/22 07:08 Pulse Ox 100 11/30/22 07:08 O2 Del Method Room Air 11/30/22 07:08 BMI result Body Mass Index 17.9 Const: Other: General: AO X 3, no acute distress Resp: CTA bilateral CVS: S1,S2,RRR GI: +BS, NT, no distention Skin: No rash Neuro: motor grossly intact Psych: appropriate affect DS: Data Data Completed and Pending Labs on day of discharge: Laboratory Results - last 24 hr 11/29/22 11/29/22 11/29/22 18:46 18:46 18:46 WBC 9.9 RBC 4.91 Hgb 14.9 Hct 44.6 MCV 90.8 MCH 30.3 MCHC 33.4 RDW 12.7 Plt Count 305 MPV 11.1 Immature Gran % (Auto) 0.3 Neut % (Auto) 72.6 Lymph % (Auto) 20.1 [place] % (Auto) 6.1 Eos % (Auto) 0.6 Baso % (Auto) 0.3 Lymph # (Auto) 2.0 [place] # (Auto) 0.6 Eos # (Auto) 0.1 Baso # (Auto) 0.0 Abs Immat Gran (auto) 0.03 Absolute Neuts (auto) 7.2 Absolute Nucleated RBC 0.000 Nucleated RBC % (auto) 0.0 PT 18.0 H INR 1.5 H VBG pH VBG pCO2 VBG pO2 VBG HCO3 VBG O2 Saturation VBG Base Excess Sodium 141 Potassium 3.4 D Chloride 102 Carbon Dioxide 25 Anion Gap 17 BUN 12 Creatinine 0.73 Estim Creat Clear Calc 41.9 Estimated GFR > 60 Random Glucose 147 H Calcium 10.2 Magnesium 1.9 Total Bilirubin 1.4 H Direct Bilirubin 0.3 AST 24 ALT 24 Alkaline Phosphatase 81 Ammonia Total Protein 8.1 H Albumin 4.7 Triglycerides Cholesterol LDL Cholesterol, Calc HDL Cholesterol TSH Urine Color Urine Appearance Urine pH Ur Specific [place] Urine Protein Urine Glucose (UA) Urine Ketones Urine Blood Urine Nitrite Ur Leukocyte Esterase Urine RBC Urine WBC Ur Squamous Epith Cells Urine Bacteria Hyaline Casts Urine Opiates Screen Urine Fentanyl Screen Ur Barbiturates Screen Ur Phencyclidine Scrn Ur Amphetamines Screen U Benzodiazepines Scrn Urine Cocaine Screen U Marijuana (THC) Screen Ethyl Alcohol < 10 11/29/22 11/29/22 11/29/22 18:46 18:46 18:46 WBC RBC Hgb Hct MCV MCH MCHC RDW Plt Count MPV Immature Gran % (Auto) Neut % (Auto) Lymph % (Auto) [place] % (Auto) Eos % (Auto) Baso % (Auto) Lymph # (Auto) [place] # (Auto) Eos # (Auto) Baso # (Auto) Abs Immat Gran (auto) Absolute Neuts (auto) Absolute Nucleated RBC Nucleated RBC % (auto) PT INR VBG pH VBG pCO2 VBG pO2 VBG HCO3 VBG O2 Saturation VBG Base Excess Sodium Potassium Chloride Carbon Dioxide Anion Gap BUN Creatinine Estim Creat Clear Calc Estimated GFR Random Glucose Calcium Magnesium Total Bilirubin Direct Bilirubin AST ALT Alkaline Phosphatase Ammonia 21 Total Protein Albumin Triglycerides Cholesterol LDL Cholesterol, Calc HDL Cholesterol TSH 0.42 Urine Color Yellow Urine Appearance Clear Urine pH 5.5 Ur Specific [place] <= 1.005 Urine Protein Trace Urine Glucose (UA) Negative Urine Ketones Negative Urine Blood Small (1+) H Urine Nitrite Negative Ur Leukocyte Esterase Negative Urine RBC 0-2 Urine WBC 0-5 Ur Squamous Epith Cells 0-2 Urine Bacteria None Seen Hyaline Casts 0-2 Urine Opiates Screen Urine Fentanyl Screen Ur Barbiturates Screen Ur Phencyclidine Scrn Ur Amphetamines Screen U Benzodiazepines Scrn Urine Cocaine Screen U Marijuana (THC) Screen Ethyl Alcohol 11/29/22 11/29/22 11/30/22 18:46 19:00 06:26 WBC 8.9 RBC 4.52 Hgb 13.7 Hct 40.7 MCV 90.0 MCH 30.3 MCHC 33.7 RDW 12.6 Plt Count 243 MPV 10.8 Immature Gran % (Auto) 0.3 Neut % (Auto) 47.6 Lymph % (Auto) 41.0 H [place] % (Auto) 9.1 Eos % (Auto) 1.6 Baso % (Auto) 0.4 Lymph # (Auto) 3.7 [place] # (Auto) 0.8 Eos # (Auto) 0.1 Baso # (Auto) 0.0 Abs Immat Gran (auto) 0.03 Absolute Neuts (auto) 4.2 Absolute Nucleated RBC 0.000 Nucleated RBC % (auto) 0.0 PT INR VBG pH 7.39 VBG pCO2 54 VBG pO2 31 VBG HCO3 33 H VBG O2 Saturation 42.0 VBG Base Excess 6.5 Sodium Potassium Chloride Carbon Dioxide Anion Gap BUN Creatinine Estim Creat Clear Calc Estimated GFR Random Glucose Calcium Magnesium Total Bilirubin Direct Bilirubin AST ALT Alkaline Phosphatase Ammonia Total Protein Albumin Triglycerides Cholesterol LDL Cholesterol, Calc HDL Cholesterol TSH Urine Color Urine Appearance Urine pH Ur Specific [place] Urine Protein Urine Glucose (UA) Urine Ketones Urine Blood Urine Nitrite Ur Leukocyte Esterase Urine RBC Urine WBC Ur Squamous Epith Cells Urine Bacteria Hyaline Casts Urine Opiates Screen Not Detected Urine Fentanyl Screen Not Detected Ur Barbiturates Screen Not Detected Ur Phencyclidine Scrn Not Detected Ur Amphetamines Screen Not Detected U Benzodiazepines Scrn Not Detected Urine Cocaine Screen Not Detected U Marijuana (THC) Screen Not Detected Ethyl Alcohol 11/30/22 11/30/22 06:26 06:26 WBC RBC Hgb Hct MCV MCH MCHC RDW Plt Count MPV Immature Gran % (Auto) Neut % (Auto) Lymph % (Auto) [place] % (Auto) Eos % (Auto) Baso % (Auto) Lymph # (Auto) [place] # (Auto) Eos # (Auto) Baso # (Auto) Abs Immat Gran (auto) Absolute Neuts (auto) Absolute Nucleated RBC Nucleated RBC % (auto) PT INR VBG pH VBG pCO2 VBG pO2 VBG HCO3 VBG O2 Saturation VBG Base Excess Sodium 142 Potassium 3.5 Chloride 109 H Carbon Dioxide 24 Anion Gap 13 BUN 12 Creatinine 0.59 Estim Creat Clear Calc 52.4 Estimated GFR > 60 Random Glucose 106 Calcium 9.7 Magnesium Total Bilirubin Direct Bilirubin AST ALT Alkaline Phosphatase [place] Total Protein Albumin Triglycerides 60 Cholesterol 180 LDL Cholesterol, Calc 124 HDL Cholesterol 44 TSH Urine Color Urine Appearance Urine pH Ur Specific [place] Urine Protein Urine Glucose (UA) Urine Ketones Urine Blood Urine Nitrite Ur Leukocyte Esterase Urine RBC Urine WBC Ur Squamous Epith Cells Urine Bacteria Hyaline Casts Urine Opiates Screen Urine Fentanyl Screen Ur Barbiturates Screen Ur Phencyclidine Scrn Ur Amphetamines Screen U Benzodiazepines Scrn Urine Cocaine Screen U Marijuana (THC) Screen Ethyl Alcohol Discharge Plan Discharge Anticipated Discharge Date/Time: 11/30/22 09:54 Patient Disposition: Home, Self-Care Discharge Diagnosis: TIA Referrals: [facility] [place] Speech and Hearing [Outside] - 1 Week Geraldo Eddy MD [Primary Care Provider] - 1 Week Discharge Medications: New atorvastatin [Lipitor] 40 mg tablet 40 mg PO BEDTIME Qty: 30 0RF aspirin 81 mg capsule 81 mg PO DAILY Qty: 60 0RF Rx Instructions: Get over the counter baby aspirin daily Continued Eliquis 5 mg tablet 5 mg PO BID Qty: 180 3RF metoprolol succinate 25 mg tablet extended release 24 hr 25 mg PO DAILY Qty: 90 3RF lisinopril 5 mg tablet 5 mg PO DAILY methimazole 5 mg tablet 10 mg PO DAILY Discharge Orders: Discharge Order (Routine); Ordered 11/30/22 Ordered By: Young Payton Diet: Advance to usual diet Activity on Discharge: As tolerated Stand Alone Forms: Patient Portal Discharge page Care Plan Goals: Stroke prevention Health Concerns: Acute stroke Plan of Treatment: continue taking all your prior medication in addition to baby aspirin and Lipitor daily Go to speech therapy. It is recommened that you do not drive for a couple of months (2 months), do not miss dose of eliquis and follow up with your Doctor kyle week Assessment: as above
[2022-11-30 10:49] VITALS: BP 126/63; PULSE 72; RESP 20; TEMP 36.4; O2SAT 93
--- NOTE | 2022-11-30 12:15 | PM.NEUROCN ---
History of Present Illness Data of Consult Service Date: 11/30/22 Primary Care Provider: Geraldo Eddy MD [facility] Reason for consult: Question TIA 77 years old woman with underlying paroxysmal atrial fibrillation was in usual state of health and driving when suddenly something happened. She said that she fell lightheaded but also reported that she had a feeling that she could not describe or she was having difficulty describing. When asked if she remembered everything, she said yes he remembered. I reviewed her description from emergency room notes and noted that she had reported a difficult to describe feeling to everyone. In any case, with that she had some difficulty speaking. When I talked to her she said the difficulty speaking was still there though it was not obvious. There was no associated arm or leg weakness or facial weakness. There was no headache Review of Systems Review of Systems: No palpitations. [facility] Past Medical History Medical History Essential hypertension Hyperthyroidism PAF (paroxysmal atrial fibrillation) Family History Family History Father No problems noted. Mother No problems noted. Surgical History Surgical History History of lumpectomy of right breast History of tonsillectomy Social History Social History Alcohol intake: never Patient Tobacco Use Status: Never used Tobacco Smoked in Last 30 Days: Yes Use of substances other than those prescribed or required for medical reasons: No Advance Directives: No Advance Directives Information Provided: Yes Nutrition Risks: No Nutritional Risk service: No Meds Allergies Allergy/AdvReac Type Severity Reaction Status Date / Time chlorpheniramine Allergy Unknown HIVES Verified 11/29/22 18:09 [CHLORPHENIRAMINE] Active Medications: Current Medications Acetaminophen (Acetaminophen 325 Mg Tablet) 650 mg PO Q6H PRN PRN Reason: Pain, Mild (Pain Scale 1-3) Apixaban (Apixaban 5 Mg Tablet) 5 mg PO BID [facility] Last Admin: 11/30/22 09:51 Dose: 5 mg Aspirin (Aspirin Enteric Coated 81 Mg Tablet.) 81 mg PO DAILY [facility] Last Admin: 11/30/22 09:51 Dose: 81 mg Atorvastatin Calcium (Atorvastatin Calcium 80 Mg Tablet) 80 mg PO BEDTIME [facility] Last Admin: 11/29/22 22:23 Dose: 80 mg Lisinopril (Lisinopril 5 Mg Tablet) 5 mg PO DAILY [facility]; Protocol Last Admin: 11/30/22 09:51 Dose: 5 mg Melatonin (Melatonin 3 Mg Tablet) 6 mg PO BEDTIME PRN PRN Reason: Insomnia Methimazole (Methimazole 10 Mg Tablet) 10 mg PO DAILY [facility] Last Admin: 11/30/22 09:51 Dose: 10 mg Metoprolol Succinate (Metoprolol Succinate Er 25 Mg Tab.Er.24h) 25 mg PO DAILY [facility]; Protocol Last Admin: 11/30/22 09:51 Dose: 25 mg Ondansetron HCl (Ondansetron Hcl 4 Mg/2 Ml Vial) 4 mg IVPUSH Q8H PRN PRN Reason: Nausea and Vomiting Pharmacy Consult (Consult Rx Perform Med Rec) 1 each MISCELLANE ONCE PRN PRN Reason: Consult order Home Medications Medication Instructions Recorded Confirmed Last Taken Type methimazole 5 mg tablet 10 mg PO DAILY 09/29/21 11/29/22 11/29/22 History lisinopril 5 mg tablet 5 mg PO DAILY 11/29/22 11/29/22 11/29/22 History Physical Exam Vital Signs: Vital Signs: Last Vital Signs Temp 97.6 F 11/30/22 10:49 Pulse 72 11/30/22 10:49 Resp 20 11/30/22 10:49 BP 126/63 11/30/22 10:49 Pulse Ox 93 11/30/22 10:49 O2 Del Method Room Air 11/30/22 10:49 BMI result Body Mass Index 17.9 Neuro: Other: Alert and awake with normal spontaneity of speech fluency comprehension and affect. Face is symmetrical. Visual cook are full. There is no pronator drift. Deep tendon reflexes are trace to absent with flexor plantars. Results Labs 11/30/22 06:26 11/30/22 06:26 Labs: Short CBC 11/29/22 11/30/22 Range/Units 18:46 06: WBC 9.9 8.9 (4.8-10.8) X10*3/uL Hgb 14.9 13.7 (12.0-16.0) g/dl Hct 44.6 40.7 (37.0-47.0) % Plt Count 305 243 (160-400) X10*3/uL BMP 11/29/22 11/30/22 18:46 06:26 Sodium 141 142 Potassium 3.4 D 3.5 Chloride 102 109 H Carbon Dioxide 25 24 BUN 12 12 Creatinine 0.73 0.59 Calcium 10.2 9.7 Liver Function 11/29/22 Range/Units 18:46 Total Bilirubin 1.4 H (0.0-1.0) mg/dL Direct Bilirubin 0.3 (0.0-0.5) mg/dL AST 24 (5-31) U/L ALT 24 (0-31) U/L Alkaline Phosphatase 81 (39-117) U/L Albumin 4.7 (3.5-5.0) g/dL Urine 11/29/22 Range/Units 18:46 Urine Color Yellow Urine Appearance Clear Urine pH 5.5 (5.0-9.0) Ur Specific [place] <= 1.005 (1.005-1.025) Urine Protein Trace (Neg-Trace) mg/dL Urine Glucose (UA) Negative (Negative) mg/dL Head CT on admission did not reveal any acute abnormality. No significant chronic abnormality was noted either. CTA of brain and neck did not reveal any significant vascular disease more than a tiny probably asymptomatic and nonsignificant aneurysm. MRI of brain revealed a moderate size left frontal cortical acute ischemic infarction. Assessment and Plan (1) Embolic cerebral infarction: Status: Acute 77 years old woman who might have forgotten to take anti coagulant does presented with an episode of set of symptoms that suggested a complex partial seizure more than a vascular lesion. But her imaging revealed a clear-cut acute embolic left frontal cerebral infarction, which could explain her difficulty speaking. Fortunately difficulty speaking was significantly less than the nature of this lesion, which in many situation can result in severe motor aphasia. At this time mainstay of management is continuation of anticoagulation and strong advised that she should not miss doses of anti coagulant. Speech therapy consultation is also recommended. She should avoid driving for couple of months. Her initial symptoms were somewhat suggestive of size seizure but I would not recommend any anti seizure medicine at this time. If similar symptoms reappear, re-evaluation might be needed. Time Spent With Patient Time: Total time managing care of this patient today ____ minutes. Procedures Date of Service Date of Service: 11/30/22
[2022-11-30 12:35] VITALS: BMI 17.9
[2022-11-30 15:17] VITALS: BP 138/73; PULSE 72; RESP 18; TEMP 35.8; O2SAT 98
--- NOTE | 2022-11-30 17:23 | MHC.STROKE ---
I MET WITH THE PATIENT TODAY AFTER HER MRI, I REVIEWED HER PMH AND HER DIAGNOSIS. I PROVIDED A SCREENSHOT OF THE MRI AND EXPLAINED THAT SHE HAD AN EMBOLIC STROKE. SHE SAID YESTERDAY AROUND [id number] SHE FELT SYMPTOMS OF WORD FINDING AND SHE FELT OFF. SHE EXPLAINED THAT SHE HAS AFIB AND IS NOT TAKING HER ELIQUIS CONSISTENTLY DUE TO THE COST. SHE EVEN TRIED GETTING THE MEDICATION FROM [facility] AT A LOWER COST. IT COST HER ABOUT $200/MONTH. SHE NOW UNDERSTANDS THAT IT IS WORTH THE COST VERSES HAVING A MORE DEBILITATING STROKE. I ASKED HER TO WORK WITH DR. OSULLIVAN AND HER PHARMACIST AND INSURANCE COMPANY TO HELP AFFORD THIS. I REVIEWED THE STROKE EDUCATION BOOKLET, SHE CONTINUE TO IMPROVE WITH HER WORDING FINDING AND I RECOMMENDED THAT SHE ASKS DR OSULLIVAN FOR A SPEECH THERAPY REFERRAL. I PROVIDED SUPPORT AND ENCOURAGEMENT. I GAVE HER MY NUMBER IN CASE SHE NEEDS TO FOLLOW UP WITH ME FOR ANY QUESTIONS.
== END 2022-11-30 17:35 | disposition home or self-care (01) | DRG 45 ==
LOC: HO.ED 21:53 → HO.EDOVER 22:15 → HO.IMC 11-30 00:05
PROVIDERS: Admitting Provider Internal Medicine; Emergency Provider Emergency Medicine; PCP Internal Medicine; Visit Provider Internal Medicine
DX: I63.412 Cerebral infarction due to embolism of left middle cerebral artery (principal); R47.01 Aphasia; I48.0 Paroxysmal atrial fibrillation; E05.90 Thyrotoxicosis, unspecified without thyrotoxic crisis or storm; I10 Essential (primary) hypertension; Z91.120 Patient's intentional underdosing of medication regimen due to financial hardship; T45.516A Underdosing of anticoagulants, initial encounter; Z79.01 Long term (current) use of anticoagulants; Z79.899 Other long term (current) drug therapy
CPT/HCPCS: 36415; 70496; 70498; 70551; 80048; 80061; 80076; 80307; 81001; 82140; 82803; 83735; 84443; 85025; 85610; 93005; 97161; 97165; 99222; 99285; Q9967

== ENCOUNTER 2022-12-05 23:53 | Emergency (ER) | payer BC, SELFPAY ==
[2022-12-06 00:03] VITALS: BP 159/103; BP 174/100; PULSE 110; PULSE 86; PULSE 92; RESP 20; TEMP 36.7; O2SAT 100; O2SAT 97; O2SAT 98; BMI 18.8
--- NOTE | 2022-12-06 00:14 | PC.NURSE ---
Pt a&o, no sob or chest pain, pt placed on bedside monitor, Ekg completed, labs ordered. Will continue to monitor
--- NOTE | 2022-12-06 00:32 | ED.ARRPALP ---
HPI - Arrhythmia/Palpitations General Chief Complaint: Arrhythmia/Palpitations Stated Complaint: Palpitations Time Seen by Provider: 12/06/22 00:31 Source: patient Mode of arrival: ambulatory Limitations: no limitations History of Present Illness HPI narrative: Patient with history of paroxysmal recent metoprolol recently admitted for TIA symptoms discharge on 11/30 comes here as patient been feeling anxious checked her blood pressure slightly to 160/80 pulse rate was 85 got anxious called her doctor was advised to take extra metoprolol which she took at home on arrival patient's heart rate is 80 AFib blood pressure was 160/85. Patient feels very anxious no chest pain no dizziness no syncope patient does have white coat hypertension Related Data Home Medications Medication Instructions Recorded Confirmed methimazole 5 mg tablet 10 mg PO DAILY 09/29/21 11/29/22 lisinopril 5 mg tablet 5 mg PO DAILY 11/29/22 11/29/22 Previous Rx's Medication Instructions Recorded apixaban 5 mg tablet (Eliquis) 5 mg PO BID #180 tabs 04/20/22 metoprolol succinate 25 mg 25 mg PO DAILY #90 caps 09/07/22 tablet,extended release 24 hr aspirin 81 mg capsule 81 mg PO DAILY #60 caps 11/30/22 atorvastatin 40 mg tablet (Lipitor) 40 mg PO BEDTIME #30 tabs 11/30/22 lorazepam 0.5 mg tablet (Ativan) 0.5 mg PO BEDTIME PRN anxiety #10 12/06/22 tabs Allergies Allergy/AdvReac Type Severity Reaction Status Date / Time chlorpheniramine Allergy Unknown HIVES Verified 11/29/22 18:09 [CHLORPHENIRAMINE] Review of Systems Review of Systems: Yes all other systems are reviewed and are negative [facility] Past Medical History Medical History Essential hypertension Hyperthyroidism PAF (paroxysmal atrial fibrillation) Surgical History History of lumpectomy of right breast History of tonsillectomy Family History Family History Father No problems noted. Mother No problems noted. Social History Social History Alcohol intake: never Patient Tobacco Use Status: Never used Tobacco Use of substances other than those prescribed or required for medical reasons: No Advance Directives: No Advance Directives Information Provided: Yes service: No Physical Exam Vital Signs: Vital Signs: Last Vital Signs Temp 98.0 F 12/06/22 00:03 Pulse 110 H 12/06/22 00:03 Resp 20 12/06/22 00:03 BP 159/103 H 12/06/22 00:03 Pulse Ox 100 12/06/22 00:03 O2 Del Method Room Air 12/06/22 00:03 BMI result Body Mass Index 18.8 Appearance: Alert. Oriented X3. No acute distress anxious. ENT: Pharynx normal. Oral Mucosa moist Neck: Normal inspection. Neck supple. CVS: Irregularly irregular heart rhythm Pulses normal. Respiratory: No respiratory distress. Equal air entry bilateral, no wheezing/rales/rhonchi Abdomen: Soft and nontender. Bowel sounds are present, no mass palpable, no CVA tenderness Skin: Skin warm and dry. Normal skin color. Normal skin turgor. Extremities: No lower extremity edema. No calf tenderness Neuro: Oriented X 3. No motor deficit. No sensory deficit.No cerebellar signs , cranial nerves II-XII intact Medical Decision Making Medical Decision Making [facility] Narrative: Patient with stable labs EKG showed atrial fibrillation with heart rate 94 beats per minute monitoring manager showing heart rate between 80-90 with stable blood pressure. Discharge patient on Ativan 0.5 mg every night as needed for anxiety and sleep advised to increase the dose of metoprolol to 50 mg daily as advised by her PCP Lab Data [facility] Lab Attestation statement: I reviewed the patient's lab results. 12/06/22 00:20 12/06/22 00:20 Labs: Lab Results 12/06/22 12/06/22 12/06/22 Range/Units 00:18 00:20 00:20 WBC 9.2 (4.8-10.8) X10*3/uL RBC 4.64 (4.20-5.50) X10*6/uL Hgb 14.4 (12.0-16.0) g/dl Hct 41.7 (37.0-47.0) % MCV 89.9 (80.0-98.0) fL MCH 31.0 (27.0-33.0) pg MCHC 34.5 (31.0-35.0) g/dl RDW 12.5 (11.0-16.0) % Plt Count 286 (160-400) X10*3/uL MPV 11.1 (9.4-12.3) fL Absolute Nucleated RBC 0.000 (0.0-0.012) X10*3/uL Nucleated RBC % (auto) 0.0 (0.0-0.2) /100WBC Sodium 139 (135-145) mmol/L Potassium 4.1 (3.3-5.1) mmol/L Chloride 105 (96-108) mmol/L Carbon Dioxide 24 (22-29) mmol/L Anion Gap 14 (12-20) BUN 18 H (9-16) mg/dL Creatinine 0.69 (0.5-1.4) mg/dL Estim Creat Clear Calc 45.4 Estimated GFR > 60 Random Glucose 153 H (60-115) mg/dL Calcium 10.0 (8.4-10.2) mg/dL Total Bilirubin 1.4 H (0.0-1.0) mg/dL AST 29 (5-31) U/L ALT 29 (0-31) U/L Alkaline Phosphatase 71 (39-117) U/L Troponin I High Sens < 2.7 (<3.5-17.0) ng/L Total Protein 7.6 (6.5-8.0) g/dL Albumin 4.3 (3.5-5.0) g/dL Independent Interpretation I performed an independent interpretation of an: EKG Interpretation: Atrial fibrillation with heart rate 94 beats per minute left axis deviation no acute ST-T change in acute ischemia Discharge Plan Discharge Clinical Impression: PAF (paroxysmal atrial fibrillation), Anxiety Patient Disposition: Home, Self-Care Instructions: A-fib (Atrial Fibrillation) (ED), Anxiety (ED) Additional Instructions: Continue metoprolol to 2 tablets a day Medicine for anxiety/sleep as prescribed Prescriptions: New lorazepam [Ativan] 0.5 mg tablet 0.5 mg PO BEDTIME PRN (Reason: anxiety) Qty: 10 0RF No Action Eliquis 5 mg tablet 5 mg PO BID Qty: 180 3RF metoprolol succinate 25 mg tablet extended release 24 hr 25 mg PO DAILY Qty: 90 3RF lisinopril 5 mg tablet 5 mg PO DAILY atorvastatin [Lipitor] 40 mg tablet 40 mg PO BEDTIME Qty: 30 0RF aspirin 81 mg capsule 81 mg PO DAILY Qty: 60 0RF Rx Instructions: Get over the counter baby aspirin daily methimazole 5 mg tablet 10 mg PO DAILY Interventions: ED Discharge Assessment Last Done: 12/06/22 01:23 Discharge Date/Time: 12/06/22 01:23
[2022-12-06 00:43] LABS: Alanine Aminotransferase 29 U/L (0-31); Albumin Level 4.3 g/dL (3.5-5.0); Alkaline Phosphatase 71 U/L (39-117); Anion Gap 14 (12-20); Aspartate Amino Transferase 29 U/L (5-31); Bilirubin Total 1.4 mg/dL (0.0-1.0); Blood Urea Nitrogen 18 mg/dL (9-16); Carbon Dioxide 24 mmol/L (22-29); Chloride 105 mmol/L (96-108); Creatinine Clr Calc Pharmacy 45.4; Estimated Glomerular Filt Rate > 60; Glucose Random 153 mg/dL (60-115); Potassium 4.1 mmol/L (3.3-5.1); Sodium 139 mmol/L (135-145); Total Protein 7.6 g/dL (6.5-8.0)
--- NOTE | 2022-12-06 01:22 | PC.NURSE ---
Reviewed discharge instructions with pt, pt verbalized understanding, no sign of distress.
--- NOTE | 2022-12-06 01:22 | PC.NURSE ---
pt offered to stay until am to try to get transportation. pt refusing to stay and wanting to go home. provider is aware.
== END 2022-12-06 01:23 | disposition home or self-care (01) ==
PROVIDERS: Emergency Provider Internal Medicine; PCP Internal Medicine
DX: I48.0 Paroxysmal atrial fibrillation (principal); F41.9 Anxiety disorder, unspecified; R00.2 Palpitations; I10 Essential (primary) hypertension
CPT/HCPCS: 36415; 80053; 84484; 85027; 93005; 99283; 99285

== ENCOUNTER → 2022-12-07 14:15 | Outpatient (BNVA) | payer BC, SELFPAY | PROVIDERS: PCP Internal Medicine; Referring Provider Internal Medicine; Visit Provider Internal Medicine ==

== ENCOUNTER → 2023-01-16 09:05 | Outpatient (REF) | payer BC, SELFPAY ==
--- NOTE | ~2023-01-16 | NM_ITS ---
Myocardial perfusion study Indication: Persistent atrial fibrillation to evaluate for myocardial ischemia Technique: The patient was brought in for a Lexiscan perfusion study on 01/16/2023. Patient performed low-level exercise and was injected 0.4 mg of Lexiscan intravenously. Within a minute of injection, 25 mCi of sestamibi was given intravenously. Images were obtained using the SPECT gamma camera interlaced with the gating device. Images were obtained in supine position. Resting perfusion study was performed on 01/18/2023. Patient was administered 25 mCi of sestamibi intravenously at rest. Images were then obtained in supine position. Images obtained with and without CT attenuation. Total DLP 72 mGy-cm. Images were processed with the software and compared side to side in short axis, horizontal long axis and vertical long axis views. Findings: The stress perfusion study showed non attenuated images show normal uptake of radiotracer in all segments of LV myocardium. Attenuation corrected images show mildly reduced uptake in the distal septum and apex of the LV myocardium.. The gated study shows normal LV systolic function with calculated LVEF of greater than 70%. LV cavity is normal size. The gated study shows normal systolic wall thickening and contraction of segments. Resting study shows no change in perfusion pattern compared to stress perfusion study. Gating at rest reveals normal systolic wall motion with ejection fraction at 69%. The findings are consistent with normal myocardial perfusion. WA/WA cardiolite stress test Impression: 1. Myocardial perfusion imaging study shows normal myocardial perfusion 2. Gated LVEF is 69% 3. Transient ischemic dilatation not present EKG is nondiagnostic for ischemia
--- NOTE | 2023-01-16 09:08 | CA_ITS ---
Acquisition Time: 2023-01-16 10:06:11 Total Exercise Time: 00:02:00 Test Indications: AFIB Medications: SEE H Protocol: LEXISCAN Max HR: 115 BPM 79% of Pred: 145 BPM Max BP: 102/062 mmHG Max Work Load: 1.4 METS Pharmacological stress test with Lexiscan injection while marching in place, without anginal symptoms, with isolated PVCs, with normotensive resposne injection, with nondiagnositic EKGs. Aminphylline 75mg IVP given to revese Lexiscan. Nuclear images pending. Test reviewed with Dr. George. Referred By: Sesar Rg Overread By: ALEXANDER GEORGE MD
--- NOTE | 2023-01-16 09:08 | HM_ITS ---
Conclusion: 1. Patient was monitored for total period of 3 days 2. Baseline was atrial fibrillation with average heart of 69 beats per minute overall good rate control 3. Overall 13 pauses noted of greater than 2.5 seconds, longest lasting 2.9 seconds, all not significant in patients with atrial fibrillation 4. Occasional PVCs noted 5. No patient reported symptoms MTDD
--- NOTE | 2023-01-16 09:08 | CA_ITS ---
Transthoracic Echocardiogram Patient (Last, First, Middle): Suzanne Sims B Gender: Female Date of : 1945 Age: 77 Procedure Date: 01/16/2023 Procedure Type: Transthoracic Echocardiogram Location: OP Height: 149.86 cm Weight: 39.01 kg BSA: 1.29 m2 Heart Rate: 55 bpm BP: 125 / 80 mmHg Factory Focus Technician: TERESA Murray MD: Sesar Rg MD Metal Bed Assembler: Venkat George MD Symptoms: I48.19 - Other persistent atrial fibrillation Study Quality: Good ECG Rhythm: Atrial Fibrillation Conclusions: - 1. Normal LV ejection fraction 55-60% with mild LVH 2. Mild mitral and tricuspid regurgitation 3. Normal calculated RV systolic pressure 4. No gross pericardial effusion Findings Left Ventricle Normal left ventricular size and systolic function. There is mildly increased left ventricular wall thickness. The visually estimated ejection fraction is between 55-60%. Diastolic function is indeterminate on the basis of available data. Right Ventricle Normal right ventricular cavity size. There is mild to moderately decreased right ventricular systolic function. Atria The left atrium is likely dilated. There is no evidence of interatrial shunt. The right atrium is likely dilated. Aortic Valve Normal aortic valve structure and function. There is no aortic valve stenosis. There is no aortic valve regurgitation. Mitral Valve Normal mitral valve structure and function. There is mild mitral valve regurgitation. There is no mitral valve stenosis. Pulmonic Valve The pulmonic valve is likely normal. There is trace to mild pulmonic valve regurgitation. Tricuspid Valve Normal tricuspid valve structure. There is mild tricuspid valve regurgitation. The right ventricular systolic pressure is normal. The right ventricular systolic pressure is 26 mmHg. Mildly elevated right atrial pressure. There is no evidence of pulmonary hypertension. Great Vessels All visible segments of the aorta are normal in size. The pulmonary artery was not well visualized. Venous The inferior vena cava is normal in size and collapses less than 50% with inspiration. Pericardium/Pleural There is no evidence of pericardial effusion. Prior Study Comparison No significant change compared to prior study dated: 08/11/2020. Measurements 2D Linear Measurements IVSd: 1.20 0.6-0.9/0.6-1.0 cm LVIDd: 3.20 3.9-5.3/4.2-5.9 cm LVIDd Index: 2.48 2.4-3.2/2.2-3.1 cm/m2 LVIDs: 2.20 2.0-3.6 cm LVPWd: 1.40 0.7-1.1 cm LA Diam: 3.20 2.7-3.8/3.0-4.0 cm LAIDs Index: 2.48 1.5-2.3 cm/m2 LV Mass: 168.84 67-162/88-224 g LV Mass Index: 130.88 43-95/49-115 g/m2 LVOT Diam: 1.70 3.0+(-)1.3 cm 2D Systolic Function EF 4C: 57.50 >55% EF 2C: 59.20 >55% EF BiP: 57.10 >55% Mitral Valve MV Pk E: 0.89 MV Decel Time: 185.00 E'Lateral: 10.60 E'Medial: 8.06 E/E' Med: 11.10 E/E' Lat: 8.40 PHT: 54.00 MVA PHT: 4.07 Decel [place]: 4.83 Aortic Valve AoV Pk Manohar: 0.87 AoV Mn Manohar: 0.65 AoV VTI: 0.18 AoV Pk Grad: 3.00 Aov Mn Grad: 2.00 LOPEZ Cont.VTI: 1.42 LVOT LVOT Pk Manohar: 0.57 LVOT Mn Manohar: 0.41 LVOT VTI: 0.11 LVOT Pk Grad: 1.00 LVOT Mn Grad: 1.00 LVOT Diam: 1.70 LVOT Area: 2.27 Diastolic Function MV Pk E: 0.89 E'Medial: 8.06 E/E' Med: 11.10 E' Laterial: 10.60 E/E' Lat: 8.40 Right Ventricle TAPSE (mm): 13.20 TVS' Manohar: 8.85 Tricuspid Valve TR Pk Manohar: 2.13 TR Pk Grad: 18.00 RA Press: 8.00 RVSP: 26.00 Great Vessels Aorta Sinus of Valsalva: 2.90 2.0-3.5 cm Ao Asc: 3.20 2.1-3.4 cm Pulmonary Valve PV Pk Manohar: 0.75 Peak PV Grad: 2.00 Updated in Other Vendor System with Status of Final Venkat George MD electronically signed on 01/16/2023 12:14:33 PM with status of Final
== END ==
LOC: HO.CARD 09:05
PROVIDERS: PCP Internal Medicine; Visit Provider Internal Medicine
DX: I48.19 Other persistent atrial fibrillation (principal); I25.10 Atherosclerotic heart disease of native coronary artery without angina pectoris; I63.40 Cerebral infarction due to embolism of unspecified cerebral artery
CPT/HCPCS: 78452; 93017; 93242; 93306; A9500; J0280; J2785

== ENCOUNTER → 2023-01-16 09:08 | Outpatient (BNV) | payer BC, SELFPAY | PROVIDERS: PCP Internal Medicine; Visit Provider Internal Medicine Cardiovascular Disease | DX: I48.0 Paroxysmal atrial fibrillation (principal) | CPT/HCPCS: 78452; 93016; 93018; 93244; 93306 ==

== ENCOUNTER 2023-01-18 11:10 | Outpatient (REF) | payer BC, SELFPAY ==
[2023-01-18 13:05] LABS: MANUAL DIFF FLAG NO
[2023-01-18 13:11] LABS: Basophils Percent Auto 0.5 % (0-2); Eosinophils Absolute Auto 0.2 X10*3/uL (0.0-0.4); Eosinophils Percent Auto 2.6 % (0-4); Hematocrit 41.6 % (37.0-47.0); Hemoglobin 13.9 g/dl (12.0-16.0); Imm Gran Abs Auto 0.02 X10*3/uL (0.00-0.03); Imm Gran Pct Auto 0.2 % (0.0-0.4); Lymphocytes Percent Auto 25.2 % (20-40); Mean Corpuscular HGB Conc 33.4 g/dl (31.0-35.0); Mean Corpuscular Hemoglobin 31.5 pg (27.0-33.0); Mean Corpuscular Volume 94.3 fL (80.0-98.0); Mean Platelet Volume 12.1 fL (9.4-12.3); Monocytes Absolute Auto 0.8 X10*3/uL (0.1-1.2); Monocytes Percent Auto 9.7 % (2-11); Neutrophils Absolute Auto 4.9 x10*3/uL (2.0-8.3); Neutrophils Percent Auto 61.8 % (45-73); Platelet Count 303 X10*3/uL (160-400); Red Blood Count 4.41 X10*6/uL (4.20-5.50); Red Cell Distribution Width 13.1 % (11.0-16.0)
[2023-01-18 13:20] LABS: Estimated Average Glucose 143 mg/dL; Hemoglobin A1C 175.1341 umol/L; Hemoglobin A1c % 6.6 %
[2023-01-18 13:27] LABS: Alanine Aminotransferase 28 U/L (0-31); Albumin Level 4.2 g/dL (3.5-5.0); Alkaline Phosphatase 91 U/L (39-117); Anion Gap 11 (12-20); Aspartate Amino Transferase 22 U/L (5-31); Bilirubin Total 0.8 mg/dL (0.0-1.0); Blood Urea Nitrogen 17 mg/dL (9-16); Calcium 10.4 mg/dL (8.4-10.2); Carbon Dioxide 28 mmol/L (22-29); Chloride 107 mmol/L (96-108); Estimated Glomerular Filt Rate > 60; Glucose Random 77 mg/dL (60-115); Potassium 5.1 mmol/L (3.3-5.1); Sodium 141 mmol/L (135-145); Total Protein 7.6 g/dL (6.5-8.0)
[2023-01-18 13:43] LABS: Free T4 (Free Thyroxine) 0.82 ng/dL (0.71-1.85)
== END 2023-01-18 11:11 | disposition home or self-care (01) ==
LOC: HO.10HDL 11:10
PROVIDERS: Visit Provider Internal Medicine
DX: I48.91 Unspecified atrial fibrillation (principal); I10 Essential (primary) hypertension; E03.9 Hypothyroidism, unspecified; E11.9 Type 2 diabetes mellitus without complications
CPT/HCPCS: 36415; 80053; 83036; 84439; 84443; 85025

== ENCOUNTER 2023-04-17 14:35 | Outpatient (AMB) | payer BC, SELFPAY ==
[2023-04-17 15:04] VITALS: BP 130/88; PULSE 74; BMI 18.6
--- NOTE | 2023-04-17 15:04 | A.OFFVIS_ITS ---
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: No Allergies chlorpheniramine [CHLORPHENIRAMINE] Allergy (Unknown, Verified 04/17/23 15:07) HIVES Medication List - Last Reconciled 04/17/23 by Luh Steiner, CHIP-C apixaban (Eliquis) 5 mg PO BID aspirin 81 mg PO DAILY atorvastatin (Lipitor) 40 mg PO BEDTIME lisinopril 10 mg PO DAILY lorazepam mg PO methimazole 10 mg PO DAILY metoprolol succinate ER 50 mg PO DAILY HPI 3 month follow up echo/holter/stress HPI Details Suzanne is a 77-year-old female with past medical history hypertension, hyperthyroid, persistent atrial fibrillation, CVA who presents for follow-up after recent Holter monitor, echocardiogram and nuclear stress test. Today she reports that she is feeling well. She has no new neurological symptoms. She is does not believe that she had a stroke. He has been taking her Eliquis 5 mg b.i.d. as directed. No chest discomfort at rest or with activity. No shortness of breath, presyncope, syncope, falls. No PND, orthopnea or edema. She does report flutters in her chest at times. Takes all meds as directed. Remains active and still takes care of and rides horses. She is upset over recent ER evaluation and hospital bills. - will be referring her to the appropriate staff members to share concerns. [facility] Medical History Hyperthyroidism Essential hypertension PAF (paroxysmal atrial fibrillation) Surgical History History of tonsillectomy History of lumpectomy of right breast Family History Father No problems noted. Mother No problems noted. Social History Alcohol intake: never Patient Tobacco Use Status: Never used Tobacco service: No Review of Systems Const All systems reviewed & are unremarkable except as noted in HPI and below ENT Denies dizziness Card Details: Palpitations at times Denies chest pain, Denies chest pain at rest, Denies chest pain with activity, Denies rapid heart rate, Denies pedal edema, Denies edema, Denies leg edema, Denies lightheadedness, Denies palpitations, Denies dyspnea, Denies dyspnea on exertion and Denies orthopnea Resp Denies cough, Denies dyspnea and Denies dyspnea on exertion GI Denies hematochezia and Denies change in stool character Musc Denies abnormal gait, Denies limited range of motion, Denies muscle cramps, Denies muscle weakness, Denies numbness, Denies radiating pain into limb, Denies stiffness and Denies tingling Neuro Denies abnormal gait, Denies dizziness, Denies numbness and Denies tingling Endo Denies palpitations Physical Exam Vital Signs: Last Vital Signs Pulse 74 04/17/23 15:04 BP 130/88 04/17/23 15:04 BMI result Body Mass Index 18.6 Const Other: Thin built, petite General: cooperative, healthy appearing, comfortable and no acute distress Orientation/consciousness: patient oriented x3 Neck Neck: Yes normal visual inspection Resp Effort & Inspection: normal respiratory effort Auscultation: clear to auscultation bilaterally, no crackles, no rales, no rhonchi and no wheezes Cardio Jugular venous distension: no JVD Rate: regular rate Rhythm: abnormal rhythm Heart sounds: S1 normal heart sound present, S2 normal heart sound present, no murmurs and no rubs Neuro General: patient oriented x3 Extrem General: Yes normal to inspection, No no pedal edema and No calf tenderness Psych Appearance: grossly normal Mental Status: mental status grossly normal Speech and movement: Normal speech and movement present Assessment & Plan Assessment & Plan (1) Persistent atrial fibrillation: Code(s): I48.19 - Other persistent atrial fibrillation Plan: History of persistent atrial fibrillation. She is on metoprolol for heart rate control. She is on Eliquis for anticoagulation. She tells me that she had previously reduced her dose down to 2.5 mg b.i.d. as her weight is only 89 lb. Then in November she was admitted for speech disturbances. An MRI of the brain done 11/30/2022 confirms an acute cortical infarct in the vascular territory of the left mid cerebral artery. Following this event her Eliquis was increased to 5 mg b.i.d. which is the appropriate dose for her age and normal creatinine. Aspirin was also added. She has not had any recurrent neurological type events. Her speech has normalized. She did undergo a Holter monitor on 01/16/2023 for 3 days showing atrial fibrillation with average heart rate 69, longest pause 2.9 seconds. A echocardiogram was done 01/16/23 showing EF 5-60%, mild LVH, mild MR and mild TR. A nuclear stress test was done 01/16/2023 showing normal myocardial perfusion imaging. Spent on all the results with her in detail. At present she denies any concerning symptoms. Will continue with current management of her AFib using metoprolol for heart rate control and Eliquis with aspirin for anticoagulation. Cardiology follow-up in 6 months, sooner if needed. (2) Embolic cerebral infarction: Code(s): I63.40 - Cerebral infarction due to embolism of unspecified cerebral artery Qualifiers: Precerebral and cerebral artery: middle cerebral artery Laterality of affected vessel: left Qualified Code(s): I63.412 - Cerebral infarction due to embolism of left middle cerebral artery Plan: As above (3) Essential hypertension: Code(s): I10 - Essential (primary) hypertension Plan: Well controlled at this time. 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
== END 2023-04-17 15:39 | disposition home or self-care (01) ==
PROVIDERS: PCP Internal Medicine; Visit Provider Nurse Practitioner Family
DX: I48.19 Other persistent atrial fibrillation (principal); I63.412 Cerebral infarction due to embolism of left middle cerebral artery; I10 Essential (primary) hypertension; Z79.01 Long term (current) use of anticoagulants
CPT/HCPCS: 99214

== ENCOUNTER → 2023-04-17 14:35 | Outpatient (BNVA) | payer BC, SELFPAY | PROVIDERS: PCP Internal Medicine; Visit Provider Nurse Practitioner Family ==

== ENCOUNTER 2023-10-19 14:25 | Outpatient (AMB) | payer BC, SELFPAY ==
[2023-10-19 14:32] VITALS: BP 132/90; PULSE 64; BMI 17.7
--- NOTE | 2023-10-19 14:32 | A.OFFVIS_ITS ---
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 Today she reports that she is feeling well. She has no new neurological symptoms. She has been taking her Eliquis 5 mg b.i.d. as directed. No bleeding issues reported. No chest discomfort at rest or with activity. No shortness of breath, palpitations, presyncope, syncope, falls. No PND, orthopnea or edema. Takes all meds as directed. Remains active and still takes care of and rides horses. [facility] Medical History Hyperthyroidism Essential hypertension PAF (paroxysmal atrial fibrillation) Surgical History History of tonsillectomy History of lumpectomy of right breast Family History Father No problems noted. Mother No problems noted. Social History Alcohol intake: never Patient Tobacco Use Status: Never used Tobacco service: No Review of Systems Const All systems reviewed & are unremarkable except as noted in HPI and below ENT Denies dizziness Card Denies chest pain, Denies chest pain at rest, Denies chest pain with activity, Denies rapid heart rate, Denies pedal edema, Denies edema, Denies leg edema, Denies lightheadedness, Denies palpitations, Denies dyspnea, Denies dyspnea on exertion and Denies orthopnea Resp Denies cough, Denies dyspnea and Denies dyspnea on exertion GI Denies hematochezia and Denies change in stool character Musc Denies abnormal gait, Denies limited range of motion, Reports muscle cramps (when taking statin), Denies muscle weakness, Denies numbness, Denies radiating pain into limb, Denies stiffness and Denies tingling Neuro Denies abnormal gait, Denies dizziness, Denies numbness and Denies tingling Endo Denies palpitations Physical Exam Vital Signs: Last Vital Signs Pulse 64 10/19/23 14:32 BP 132/90 H 10/19/23 14:32 BMI result Body Mass Index 17.7 Const Other: Thin built, petite General: cooperative, healthy appearing, comfortable and no acute distress Orientation/consciousness: patient oriented x3 Neck Neck: Yes normal visual inspection Resp Effort & Inspection: normal respiratory effort Auscultation: clear to auscultation bilaterally, no crackles, no rales, no rhonchi and no wheezes Cardio Jugular venous distension: no JVD Rate: regular rate Rhythm: abnormal rhythm Heart sounds: S1 normal heart sound present, S2 normal heart sound present, no murmurs and no rubs Neuro General: patient oriented x3 Extrem General: Yes normal to inspection, No no pedal edema and No calf tenderness Psych Appearance: grossly normal Mental Status: mental status grossly normal Speech and movement: Normal speech and movement present Office Procedures EKG Details: Today, read by me, atrial fibrillation, left axis deviation, can not exclude anterior septal infarct, rate 75, QTC 444 millisecond [id number], Complete Assessment & Plan Assessment & Plan (1) Persistent atrial fibrillation: Code(s): I48.19 - Other persistent atrial fibrillation Category: Medical Plan: History of persistent atrial fibrillation. She is on metoprolol for heart rate control. She is on Eliquis for anticoagulation. She has a history of reducing her Eliquis dose down to 2.5 mg b.i.d on her own since her weight is so low. Then in November 2022 she was admitted for speech disturbances. An MRI of the brain done 11/30/2022 confirmed an acute cortical infarct in the vascular territory of the left mid cerebral artery. Following this event her Eliquis was increased to 5 mg b.i.d. which is the appropriate dose for her age and normal creatinine. Aspirin was also added. She has not had any recurrent neurological type events. Her speech has normalized. She did undergo a Holter monitor on 01/16/2023 for 3 days showing atrial fibrillation with average heart rate 69, longest pause 2.9 seconds. A echocardiogram was done 01/16/23 showing EF 5-60%, mild LVH, mild MR and mild TR. A nuclear stress test was done 01/16/2023 showing normal myocardial perfusion imaging. She is currently doing well with no concerning symptoms. Will continue with current management of her AFib using metoprolol for heart rate control and Eliquis with aspirin for anticoagulation. Cardiology follow-up in 6 months, sooner if needed. (2) Embolic cerebral infarction: Code(s): I63.40 - Cerebral infarction due to embolism of unspecified cerebral artery Category: Medical Qualifiers: Laterality of affected vessel: left Precerebral and cerebral artery: middle cerebral artery Qualified Code(s): I63.412 - Cerebral infarction due to embolism of left middle cerebral artery Plan: As above (3) Essential hypertension: Code(s): I10 - Essential (primary) hypertension Category: Medical Plan: Well controlled at this time. 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
== END 2023-10-19 15:15 | disposition home or self-care (01) ==
PROVIDERS: PCP Internal Medicine; Visit Provider Nurse Practitioner Family
DX: I10 Essential (primary) hypertension (principal); I48.19 Other persistent atrial fibrillation; Z79.01 Long term (current) use of anticoagulants
CPT/HCPCS: 93010; 99213

== ENCOUNTER → 2023-10-19 14:25 | Outpatient (BNVA) | payer BC, SELFPAY | PROVIDERS: PCP Internal Medicine; Visit Provider Nurse Practitioner Family | DX: I48.19 Other persistent atrial fibrillation (principal); I10 Essential (primary) hypertension; Z86.73 Personal history of transient ischemic attack (TIA), and cerebral infarction without residual deficits; Z79.01 Long term (current) use of anticoagulants | CPT/HCPCS: 93005 ==

== ENCOUNTER 2024-07-01 14:56 | Outpatient (AMB) | payer BC, SELFPAY ==
--- NOTE | 2024-07-01 14:59 | A.OFFVIS_ITS ---
Vital Signs 07/01/24 15:00 Height 4 ft 10 in Weight 86 lb 13.794 oz BMI 18.2 BP 138/80 Blood Pressure Location Lt brachial Position Sitting Pulse 75 Pulse Source Pulse Oximeter Intake Visit Reasons: r/s 04/19/24 6 mos followup City Clerk Required: No Allergies chlorpheniramine [CHLORPHENIRAMINE] Allergy (Unknown, Verified 07/01/24 15:01) HIVES Medication List - Last Reconciled 07/01/24 by Luh Steiner NP-C apixaban (Eliquis) 5 mg PO BID aspirin 81 mg PO DAILY lisinopril 10 mg PO DAILY methimazole 10 mg PO DAILY metoprolol succinate ER 50 mg PO DAILY HPI HPI r/s 04/19/24 6 mos followup: Details: Suzanne is a 78-year-old female with past medical history hypertension, hyperthyroid, persistent atrial fibrillation, CVA who presents for follow-up. Today she reports that she is feeling well. She has no new neurological symptoms. She has been taking her Eliquis 5 mg b.i.d. as directed. No bleeding issues reported. No chest discomfort at rest or with activity. No shortness of breath, palpitations, presyncope, syncope, falls. No PND, orthopnea or edema. Takes all meds as directed. 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 She still rides and cares for her own horse as well. [facility] Medical History Hyperthyroidism Essential hypertension PAF (paroxysmal atrial fibrillation) Surgical History History of tonsillectomy History of lumpectomy of right breast Family History Father No problems noted. Mother No problems noted. Social History Alcohol intake: never Patient Tobacco Use Status: Never used Tobacco service: No Review of Systems Const All systems reviewed & are unremarkable except as noted in HPI and below ENT Denies dizziness Card Denies chest pain, Denies chest pain at rest, Denies chest pain with activity, Denies rapid heart rate, Denies pedal edema, Denies edema, Denies leg edema, Denies lightheadedness, Denies palpitations, Denies dyspnea, Denies dyspnea on exertion and Denies orthopnea Resp Denies cough, Denies dyspnea and Denies dyspnea on exertion GI Denies hematochezia and Denies change in stool character Musc Denies abnormal gait, Denies limited range of motion, Denies muscle cramps, Denies muscle weakness, Denies numbness, Denies radiating pain into limb, Denies stiffness and Denies tingling Neuro Denies abnormal gait, Denies dizziness, Denies numbness and Denies tingling Endo Denies palpitations Physical Exam Vital Signs: Last Vital Signs Pulse 75 07/01/24 15:00 BP 138/80 07/01/24 15:00 BMI result Body Mass Index 18.2 Const Other: Thin built, petite General: cooperative, healthy appearing, comfortable and no acute distress Orientation/consciousness: patient oriented x3 Neck Neck: Yes normal visual inspection Resp Effort & Inspection: normal respiratory effort Auscultation: clear to auscultation bilaterally, no crackles, no rales, no rhonchi and no wheezes Cardio Jugular venous distension: no JVD Rate: regular rate Rhythm: abnormal rhythm Heart sounds: S1 normal heart sound present, S2 normal heart sound present, no murmurs and no rubs Neuro General: patient oriented x3 Extrem General: Yes normal to inspection, No no pedal edema and No calf tenderness Psych Appearance: grossly normal Mental Status: mental status grossly normal Speech and movement: Normal speech and movement present Assessment & Plan Assessment & Plan (1) Persistent atrial fibrillation: Code(s): I48.19 - Other persistent atrial fibrillation Category: Medical Plan: History of persistent atrial fibrillation. She is on metoprolol for heart rate control. She is on Eliquis for anticoagulation. She has a history of reducing her Eliquis dose down to 2.5 mg b.i.d on her own since her weight is so low. Then in November 2022 she was admitted for speech disturbances. An MRI of the brain done 11/30/2022 confirmed an acute cortical infarct in the vascular territory of the left mid cerebral artery. Following this event her Eliquis was increased to 5 mg b.i.d. which is the appropriate dose for her age and normal creatinine. Aspirin was also added. She has not had any recurrent neurological type events. Her speech has normalized. She did undergo a Holter monitor on 01/16/2023 for 3 days showing atrial fibrillation with average heart rate 69, longest pause 2.9 seconds. A echocardiogram was done 01/16/23 showing EF 55-60%, mild LVH, mild MR and mild TR. A nuclear stress test was done 01/16/2023 showing normal myocardial perfusion imaging. She is currently doing well with no shortness of breath or heart palpitations. She has good activity tolerance no bleeding issues reported. Will continue with current management of her AFib using metoprolol for heart rate control and Eliquis with aspirin for anticoagulation. Cardiology follow-up in 6 months, sooner if needed. (2) Embolic cerebral infarction: Code(s): I63.40 - Cerebral infarction due to embolism of unspecified cerebral artery Category: Medical Qualifiers: Laterality of affected vessel: left Precerebral and cerebral artery: middle cerebral artery Qualified Code(s): I63.412 - Cerebral infarction due to embolism of left middle cerebral artery Plan: As above (3) Essential hypertension: Code(s): I10 - Essential (primary) hypertension Category: Medical Plan: She tells me that her blood pressure has been elevated. She went for a tooth extraction in her blood pressure was 160/90 and they could not perform the procedure. She has been monitoring her blood pressure at home and finds that it has been higher than usual. Blood pressure in the office today initially 138/80, recheck done by me 142/80. She currently takes lisinopril 5 mg in the a.m. and 5 mg in the p.m.. She is quite concerned about her readings. Will trial an increase lisinopril slightly. Will have her take 5 mg tablets, 2 in the a.m. and 1 in the p.m.. She always has divided up her dose since she is of small stature. When she took it all at once she became lightheaded. She will continue to watch her blood pressure at home and call if her systolic is less than 100 or running greater than 140. -will update labs, CBC and BMP (4) Chronic anticoagulation: Code(s): Z79.01 - senior care (current) use of anticoagulants Category: Medical Plan: As above Plan Time spent on chart review, documentation, interview and assessment Orders: Orders Basic Metabolic Panel Today Z79.01 - long term care administrator (current) use of anticoagulants Complete Blood Count Auto Diff Today Z79.01 - senior care (current) use of anticoagulants Medications: New lisinopril 5 mg orally 2 tablets in am and 1 tablet in pm; 30 days 90 tabs 5RF Coding Level of Care Code Est Pt Level 4 (22227) Complex EM visit Add On G2211 Diagnoses Persistent atrial fibrillation I48.19 Cerebral infarction due to embolism of left middle cerebral artery I63.412 Laterality of affected vessel: left Precerebral and cerebral artery: middle cerebral artery Essential hypertension I10 Chronic anticoagulation Z79.01 Time Spent (min) 28
[2024-07-01 15:00] VITALS: BP 138/80; PULSE 75; BMI 18.2
--- OUTSIDE RECORDS SUMMARY | 2024-07-01 19:13 | XMS_ITS | Continuity of Care Document ---
Author Organization [facility] [address] [place] [address] Phone [phone] Care Team Providers Care Director Pharmaceutical Name Role Phone Geraldo Eddy M.D. Care Team Information Receiv er [phone] Problems Active Problems Provider Date Carcinoma of breast Lilia Yee M.D. Onset: 01/24/2022 Essential hypertension Iram Moreno Onset: 01/24/2022 Atrial fibrillation Lilia Yee M.D. Onset: 01/24/2022 Graves' disease Lilia Yee M.D. Ons et: 01/24/2022 Hyperthyroidism Lilia Yee M.D. Ons et: 01/24/2022 Cerebrovascular accident Lilia Yee M.D. 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 12/14/2022 [id number] Tablets Take One Half Tablet By Mouth 5 X Week 90tabs Lilia Yee M.D. 01/14/2022 Jukpbqd1ve Tablets Take One Tablet By Mouth Twice A Day Unknown Jikommohrb2nq Tablets Take 1 Tablet By Mouth Once A Day Twice Daily Unknown Multivitamin Adults 50+Adlt 50+ Tablets 1 by mouth every day Lilia Yee M.D. Aspirin 8181mg Tablets DR 1 by mouth every day Lilia Yee M.D. Lorazepam0.5mg Tablets 1/2 tab daily Unk nown Vital Signs Date Vital Result Comment 04/05/2024 2:53pm BP Systolic 140 mmHg BP Diastolic 70 mmHg Heart Rate 74 /min Height 59 inches 4'11 Weight 88.50 lb BMI (Body Mass Index) 17.9 kg/m2 Results Test Acquired Date Facility Test Result H/L Range Note Laboratory test finding 06/27/2024 [facility] TSH Rfx on Abnormal to Free T4 0.740 uIU/mL 0.450-4. 500 Laboratory test finding 04/07/2024 [facility] TSH RFX On Abnormal To Free T4 <pending> TSH Rfx on Abnormal to Free T4 04/05/2024 [facility] TSH RFX On Abnormal To Free T4 18.400 uIU/mL High 0.450-4. 500 T4,Free (Direct) 0.43 ng/dL Low 0.82-1.7 7 TSH Rfx on Abnormal to Free T4 12/06/2023 [facility] TSH RFX On Abnormal To Free T4 0.195 uIU/mL Low 0.450-4. 500 T4,Free (Direct) 1.08 ng/dL 0.82-1.7 7 Laboratory test finding 12/06/2023 [facility] TSH RFX On Abnormal To Free T4 <pending> Laboratory test finding 07/11/2023 [facility] TSH With Reflex To FT4 2.09 uIU/mL (0.4-4.2 ) Laboratory test finding 04/13/2023 [facility] TSH With Reflex To FT4 <pending> Laboratory test finding 04/12/2023 [facility] TSH With Reflex To FT4 4.83 uIU/mL High (0.4-4.2 ) Laboratory test finding 04/12/2023 [facility] Free T4 0.83 ng/dL (0.70-1. 80) Basic Metabolic Panel 04/12/2023 [facility] Glucose 90 mg/dL (70-99) BUN 15 mg/dL (8-23) Creatinine 0.7 mg/dL (0.5-1.0 ) Sodium 143 mmol/L (133-145 ) Potassium 5.3 mmol/L High (3.6-5.2 ) Chloride 106 mmol/L (98-107) Bicarbonate 26 mmol/L (22-29) Anion Gap 11 (4-17) Calcium 10.1 mg/dL (8.6-10. 5) Estimated GFR Creatinine 87 ML/MIN/1.7 3M2 1 Complete Abc With Diff 04/12/2023 [facility] WBC 8.0 K/MM3 (4.0-11. 0) RBC 4.51 M/MM3 (4.20-5. 40) HGB 13.7 GM/DL (11.7-15 .5) HCT 43.2 % (35.7-45 .8) MCV 95.8 FL (80.0-10 0.0) MCH 30.4 pg (27.0-34 .0) MCHC 31.7 g/dL Low (33.0-37 .0) PLT 271 K/MM3 (150-460 ) RDW-SD 49.1 FL High (<47.0) MPV 12.6 FL High (9.4-12. 4) Automated NRBC 0.0 #/100WBC'S Abs. NRBC 0.0 K/MM3 Neut # 4.4 K/MM3 (1.3-7.0 ) Lymph # 2.7 K/MM3 (0.8-3.1 ) [place]# 0.7 K/MM3 (0.4-0.9 ) Eo # 0.1 K/MM3 (0.0-0.4 ) Baso # 0.0 K/MM3 (0.0-0.1 ) Abs. Imm Gran 0.0 K/MM3 Neut 54.9 % (44-76) Lymph 34.1 % (15-43) Monocyte 8.4 % (4.5-10. 5) Eo 1.8 % (0-6) Baso 0.5 % (0-2) Imm Gran 0.3 % Laboratory test finding 04/12/2023 [facility] Hemoglobin A1c 6.8 % High (4.0-5.6 ) 2 Laboratory test finding 12/15/2022 [facility] TSH With Reflex To FT4 <pending> Laboratory test finding 12/14/2022 [facility] TSH With Reflex To FT4 0.06 uIU/mL Low (0.4-4.2 ) Free T4 1.51 ng/dL (0.70-1. 80) Laboratory test finding 08/26/2022 [facility] TSH With Reflex To FT4 1.11 uIU/mL (0.4-4.2 ) Free T3 2.5 pg/mL (2.3-5.0 ) Free T4 0.84 ng/dL (0.70-1. 80) Comprehensive Metabolic Panl 05/09/2022 [facility] Glucose 96 mg/dL (70-99) BUN 15 mg/dL (8-23) Creatinine 0.7 mg/dL (0.5-1.0 ) Sodium 140 mmol/L (133-145 ) Potassium 4.4 mmol/L (3.6-5.2 ) Chloride 102 mmol/L (98-107) Bicarbonate 27 mmol/L (22-29) Anion Gap 11 (4-17) Albumin 4.6 GM/DL (3.4-4.8 ) Calcium 9.9 mg/dL (8.6-10. 5) Bilirubin,Total 0.8 mg/dL (0-1.2 ) Total Protein 7.2 GM/DL (6.2-8.2 ) Ag Ratio 1.8 Ast 24 U/L (0-32) Alk Phos 82 U/L (35-104) Alt 21 U/L (0-33) Estimated GFR Creatinine 88 ML/MIN/1.7 3M2 3 Laboratory test finding 05/09/2022 [facility] TSH With Reflex To FT4 1.94 uIU/mL (0.4-4.2 ) Laboratory test finding 01/24/2022 [facility] TSH 2.58 uIU/mL (0.4-4.2 ) Free T3 2.9 pg/mL (2.3-5.0 ) Free T4 0.83 ng/dL (0.70-1. 80) 1 Creatinine based est imated glomerular filtration (eGFR) in adults is calculated using the National Kidney Foundation recommended 2020 CKD-EPI equation. Estimates GFR from serum creatinine, age and sex. 2 MONITORING: In known diabetic patients, hemoglobin A1c targets should be discussed with health care provider. DIAGNOSTIC USE: The [place] Diabetes Association (ADA) and the World Health Organization (WHO) recommend the use of HbA1c to diagnose diabetes using a threshold of 6.5%. Patients who have an HbA1c between 5.7% and 6.4% are considered at increased risk for developing diabetes in the future. CAUTION: Falsely low HbA1c results may be observed in patients with hemolytic anemia, homozygous forms of abnormal hemoglobin (e.g. SS, CC, SC), , recent blood loss or hemoglobin F greater than 7%. Fructosamine may be used as an alternate test in these cases. REFERENCE: ADA: Standards of Medical Care in Diabetes 2020, The Journal of Clinical and Applied Research and Education Volume 43, Supplement 1 3 Creatinine based est imated glomerular filtration (eGFR) in adults is calculated using the National Kidney Foundation recommended 2020 CKD-EPI equation. Estimates GFR from serum creatinine, age and sex. Procedures Date Code Description Status 04/05/2024 89333 Collection Of Venous Blood B y Venipuncture Completed 12/06/2023 87277 Collection Of Venous Blood B y Venipuncture Completed 04/12/2023 10486 Collection Of Venous Blood B y Venipuncture Completed 12/14/2022 76963 Collection Of Venous Blood B y Venipuncture Completed 08/26/2022 59415 Collection Of Venous Blood B y Venipuncture Completed 05/09/2022 32699 Collection Of Venous Blood B y Venipuncture Completed 01/24/2022 25559 Collection Of Venous Blood B y Venipuncture Completed Medical Devices Description No Information Available Encounters Type Date Location Provider Dx Diagnosis Office Visit 04/05/2024 2:45p Main Office Lilia Yee M.D. E05.00 Thyrotoxicosis w diffuse goiter w/o thyrotoxic crisis Assessments Date Code Description Provider 04/05/2024 E05.00 Thyrotoxicosis w ith diffuse goiter without thyrotoxic crisis or storm Lilia Yee M.D. Plan of Treatment Future Appointment(s):* 08/07/2024 3:00 pm - Lilia Yee M.D. 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 Created [address] [place] [address] Drive [address] [place] [id number] [phone] Liila Yee M.D. Created [address] [place] [address] Drive [address] [place] [id number] [phone]
== END 2024-07-01 15:33 | disposition home or self-care (01) ==
PROVIDERS: PCP Internal Medicine; Visit Provider Nurse Practitioner Family
DX: I48.19 Other persistent atrial fibrillation (principal); I63.412 Cerebral infarction due to embolism of left middle cerebral artery; I10 Essential (primary) hypertension; Z79.01 Long term (current) use of anticoagulants
CPT/HCPCS: 99214

== ENCOUNTER → 2024-07-01 14:56 | Outpatient (BNVA) | payer BC, SELFPAY | PROVIDERS: PCP Internal Medicine; Visit Provider Nurse Practitioner Family ==

== ENCOUNTER 2024-12-25 15:37 | Outpatient (AMB) | payer BC, SELFPAY ==
[2024-12-25 13:49] VITALS: BP 124/80; PULSE 76; TEMP 36.2; O2SAT 98; BMI 17.3
--- NOTE | 2024-12-25 13:49 | A.OFFPC_ITS ---
Vital Signs 12/25/24 13:49 Height 4 ft 10 in Weight 83 lb BMI 17.3 BP 124/80 Blood Pressure Location Lt brachial Position Sitting Pulse 76 Pulse Source Pulse Oximeter Temp 97.1 F Temp Source Axillary Pulse Oximetry (%) 98 Oxygen Delivery Method Room Air Intake Visit Reasons: Establish Care - see comments Cutter Tender Required: No Accompanied by: Self / Same As Patient Allergies chlorpheniramine (CHLORPHENIRAMINE) Allergy (Unknown, Verified 12/25/24 13:50) HIVES Tobacco use date assessed: 12/25/24 Fall risk assessment: No Falls in past year Last assessed Fall Risk: 12/25/24 Dental Screening Dental Screen Date: 12/25/24 Did you have a dental visit in the last 12 months?: Yes Did you have a dental problem in the last 6 months where you did not have access to dental care?: No [facility] Medical History Hyperthyroidism Essential hypertension PAF (paroxysmal atrial fibrillation) Surgical History History of tonsillectomy History of lumpectomy of right breast Family History Father No problems noted. Mother No problems noted. Social History Housing: House Alcohol intake: never Patient Tobacco Use Status: Current everyday Tobacco user e-Cigarette/Vaping Use: Currently Using service: No Current occupational status: retired Cognitive needs: No Hearing needs: No Vision needs: No Questionnaire PHQ-9 Over the last 2 weeks, how often have you been bothered by any of the following problems? 1. Little interest or pleasure in doing things: not at all 2. Feeling down, depressed, or hopeless: not at all 3. Trouble falling or staying asleep, or sleeping too much: not at all 4. Feeling tired or having little energy: not at all 5. Poor appetite or overeating: not at all 6. Feeling bad about yourself - or that you are a failure or have let yourself or your family down: not at all 7. Trouble concentrating on things, such as reading the newspaper or watching television: not at all 8. Moving or speaking so slowly that other people could have noticed. Or the opposite - being so fidgety or restless that you have been moving around a lot more than usual: not at all 9. Thoughts that you would be better off or of hurting yourself in some way: not at all Total score: 0 Source: Developed by Drs. Saw Sexton, Jennifer Ybarra, Guanakito Hendrickson and colleagues, with an educational jah from [employer]. Thrive Questionnaire Date Thrive assessed: 12/25/24 I am a: Patient Within the past 12 months, did the food you bought not last and you didn't have the money to get more?: Never true Within the past 12 months, did you worry whether your food would run out before you got money to buy more?: Never true Do you have trouble paying for medicines?: No Do you have trouble getting transportation to medical appointments?: No Do you have trouble paying your heating and electricity bill?: No Do you have trouble taking care of your child, family member or friend?: No Do you have trouble with day-to-day activities such as bathing, preparing meals, shopping, managing finances, etc.?: No Are you currently unemployed and looking for a job?: No Are you interested in more education?: No THRIVE Score: 0 AUDIT C Alcohol Use Questionnaire (AUDIT-C) 1. How often do you have a drink containing alcohol?: Never 3. How often do you have six or more drinks on one occasion?: Never Total Score: 0 PRISCILA-7 AMB Questionnaire PRISCILA-7 Date PRISCILA - 7 assessed: 12/25/24 Feeling nervous, anxious, or on edge: 0 = Not at all Not being able to stop or control worryin = Not at all Worrying too much about different things: 0 = Not at all Trouble relaxin = Not at all Being so restless that it is hard to sit still: 0 = Not at all Becoming easily annoyed or irritable: 0 = Not at all Feeling afraid as if something awful might happen: 0 = Not at all Total PRISCILA-7 score (0-4 normal; 5-9 mild; 10-14 moderate; 15-21 severe): 0 Source: Developed by Jennifer Knox. Tate, Guanakito Hendrickson and colleagues, with an educational jah from [employer]. Physical exam (Primary Care) Vital Signs: Last Vital Signs Temp 97.1 F 12/25/24 13:49 Pulse 76 12/25/24 13:49 BP 124/80 12/25/24 13:49 Pulse Ox 98 12/25/24 13:49 Oxygen Delivery Method Room Air 12/25/24 13:49 BMI result Body Mass Index 17.3 Tobacco/Smoking Status: Tobacco use Status Tobacco use date assessed 12/25/24 12/25/24 13:51 Patient Tobacco Use Status Current everyday Tobacco 12/25/24 15:55 e-Cigarette/Vaping Use Currently Using 12/25/24 15:55 PHQ-9: PHQ-9 Score PHQ-9: Total score 0 12/25/24 15:58 Thrive Assessment: Date of Thrive Assessment Date Thrive assessed 12/25/24 12/25/24 13:51 Coding Level of Care Code New Pt Level 4 (29391) Complex EM visit Add On G2211 Diagnoses Essential hypertension I10 PAF (paroxysmal atrial fibrillation) I48.0 Assessment & Plan Assessment & Plan (1) Essential hypertension: Code(s): I10 - Essential (primary) hypertension Category: Medical Plan: BP in range (2) PAF (paroxysmal atrial fibrillation): Code(s): I48.0 - Paroxysmal atrial fibrillation Category: Medical Plan: Condition is stable. Plan History of Present Illness - The patient is a 79-year-old female presenting with management of hyperthyroidism and atrial fibrillation. - Hyperthyroidism: Currently managed with metamizole, resulting in atrial fibrillation. - Atrial Fibrillation: Described as slow, managed with Eliquis. - Breast Cancer: Initially misdiagnosed as stage 4, corrected to stage 3 at [facility]. - GERD: Diagnosed with moderate to severe GERD, which the patient disputes. - Medical Records: Patient distrusts hospital records due to past inaccuracies. - Social History: Smokes three-quarters of a pack per day, denies drug use. Social History - Smoking: The patient smokes three-quarters of a pack per day and denies inhaling. - Substance Use: Denies drug use. 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 Review of Systems - Cardiovascular: Reports atrial fibrillation, denies chest pain. - Gastrointestinal: Denies symptoms of GERD despite previous diagnosis. Physical Exam General: Cooperative and healthy appearing Nutritional Appearance: Well nourished Orientation/consciousness: Patient oriented x3 Limitations: No limitations Head: Normal to inspection General: Appearance normal, both eyes and all related structures Neck: Normal visual inspection Chest: Normal palpation of entire chest wall Respiratory: Smoker, three-quarters of a pack a day, does not inhale. ormal respiratory effort Neurology: Patient oriented x3 Results Plan 1. Hyperthyroidism - Continue metamizole therapy and monitor thyroid function. 2. Atrial Fibrillation - Maintain anticoagulation with Eliquis and follow up with cardiology. 3. Breast Cancer, Stage 3 - No active treatment currently required. 4. Gastroesophageal Reflux Disease (Gerd) - Diagnosis disputed by patient; no treatment plan in place. Discussion Notes During the visit, we discussed the management of hyperthyroidism and atrial fibrillation, including the continuation of metamizole and Eliquis. The patient expressed concerns about past medical record inaccuracies, which we acknowledged and discussed the importance of accurate documentation. We also reviewed the patient's history of breast cancer and GERD, noting the patient's perspective on these diagnoses. Patient Instructions - Continue taking metamizole and Eliquis as prescribed. - Schedule regular follow-ups with your forest fire fighters dispatcher. - Monitor thyroid function tests as advised. - Report any new symptoms or concerns to your healthcare provider. Orders: Orders Complete Blood Count no Diff Today I10 - Essential (primary) hypertension, I48.0 - Paroxysmal atrial fibrillation Lipid Panel Today I10 - Essential (primary) hypertension, I48.0 - Paroxysmal atrial fibrillation Liver Panel Today I10 - Essential (primary) hypertension, I48.0 - Paroxysmal atrial fibrillation Hemoglobin A1c Today I10 - Essential (primary) hypertension, I48.0 - Paroxysmal atrial fibrillation Basic Metabolic Panel Today I10 - Essential (primary) hypertension, I48.0 - Paroxysmal atrial fibrillation Thyroid Stimulating Hormone Today I10 - Essential (primary) hypertension, I48.0 - Paroxysmal atrial fibrillation
--- OUTSIDE RECORDS SUMMARY | 2024-12-25 15:51 | XMS_ITS | Continuity of Care Document ---
Author Organization [facility] [address] [facility] [address] [place] [address] Phone [phone] Problems Active Problems Provider Date Carcinoma of breast Lilia Yee M.D. Onset: 01/24/2022 Essential hypertension Iram Moreno Onset: 01/24/2022 Atrial fibrillation Lilia Yee M.D. Onset: 01/24/2022 Graves' disease Lilia Yee M.D. Ons et: 01/24/2022 Hyperthyroidism Lilia Yee M.D. Ons et: 01/24/2022 Cerebrovascular accident Lilia Yee M.D. 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 01/14/2022 Ekdjodv9sf Tablets Take One Tablet By Mouth Twice A Day Unknown Xmozdyupuz0ob Tablets Take 2 Tablets By Mouth In The A.M., 1 Tablet In The P.M. Unknown Multivitamin Adults 50+Adlt 50+ Tablets 1 by mouth every day Lilia Yee M.D. Aspirin 8181mg Tablets DR 1 by mouth every day Lilia Yee M.D. Lorazepam0.5mg Tablets 1/2 tab daily prn Unknown Metoprolol Succinate ER50mg Tablets ER 24HR 1 by mouth every day Unknown Vital Signs Date Vital Result Comment 12/12/2024 3:18pm BP Systolic 130 mmHg BP Diastolic 90 mmHg Heart Rate 69 /min Height 59 inches 4'11 Weight 86.25 lb BMI (Body Mass Index) 17.4 kg/m2 Results Test Acquired Date Facility Test Result H/L Range Note TSH Rfx on Abnormal to Free T4 12/18/2024 [facility] TSH Rfx on Abnormal to Free T4 1.970 uIU/mL 0.450-4. 500 TSH RFX On Abnormal To Free T4 08/08/2024 [facility] TSH RFX On Abnormal To Free T4 <pending> TSH Rfx on Abnormal to Free T4 08/07/2024 [facility] TSH RFX On Abnormal To Free T4 0.314 uIU/mL Low 0.450-4. 500 T4,Free (Direct) 1.03 ng/dL 0.82-1.7 7 TSH Rfx on Abnormal to Free T4 06/27/2024 [facility] TSH Rfx on Abnormal to Free T4 0.740 uIU/mL 0.450-4. 500 TSH RFX On Abnormal To Free T4 04/07/2024 [facility] TSH RFX On Abnormal To [...] 500 T4,Free (Direct) 1.08 ng/dL 0.82-1.7 7 TSH RFX On Abnormal To Free T4 12/06/2023 [facility] TSH RFX On Abnormal To Free T4 <pending> TSH With Reflex To FT4 07/11/2023 [facility] TSH With Reflex To FT4 2.09 uIU/mL (0.4-4.2 ) TSH With Reflex To FT4 04/13/2023 [facility] TSH With Reflex To FT4 <pending> Basic Metabolic Panel 04/12/2023 [facility] Glucose 90 mg/dL (70-99) BUN 15 mg/dL (8-23) Creatinine 0.7 mg/dL (0.5-1.0 ) Sodium 143 mmol/L (133-145 ) Potassium 5.3 mmol/L High (3.6-5.2 ) Chloride 106 mmol/L (98-107) Bicarbonate 26 mmol/L (22-29) Anion Gap 11 (4-17) Calcium 10.1 mg/dL (8.6-10. 5) Estimated GFR Creatinine 87 ML/MIN/1.7 3M2 1 Free T4 04/12/2023 [facility] Free T4 0.83 ng/dL (0.70-1. 80) TSH With Reflex To FT4 04/12/2023 [facility] TSH With Reflex To FT4 4.83 uIU/mL High (0.4-4.2 ) Complete Abc With Diff 04/12/2023 [facility] WBC 8.0 K/MM3 (4.0-11. 0) [...] ) Lymph # 2.7 K/MM3 (0.8-3.1 ) Maries# 0.7 K/MM3 (0.4-0.9 ) Eo # 0.1 K/MM3 (0.0-0.4 ) Baso # 0.0 K/MM3 (0.0-0.1 ) Abs. Imm Gran 0.0 K/MM3 Neut 54.9 % (44-76) Lymph 34.1 % (15-43) Monocyte 8.4 % (4.5-10. 5) Eo 1.8 % (0-6) Baso 0.5 % (0-2) Imm Gran 0.3 % Hemoglobin A1c 04/12/2023 [facility] Hemoglobin A1c 6.8 % High (4.0-5.6 ) 2 TSH With Reflex To FT4 12/15/2022 [facility] TSH With Reflex To FT4 <pending> TSH With Reflex To FT4 12/14/2022 [facility] TSH With Reflex To FT4 0.06 uIU/mL Low (0.4-4.2 ) Free T4 12/14/2022 [facility] Free T4 1.51 ng/dL (0.70-1. 80) TSH With Reflex To FT4 08/26/2022 [facility] TSH With Reflex To FT4 1.11 uIU/mL (0.4-4.2 ) Free T3 08/26/2022 [facility] Free T3 2.5 pg/mL (2.3-5.0 ) Free T4 08/26/2022 [facility] Free T4 0.84 ng/dL (0.70-1. 80) Comprehensive Metabolic Panl 05/09/2022 [facility] Glucose 96 mg/dL (70-99) BUN [...] Estimated GFR Creatinine 88 ML/MIN/1.7 3M2 3 TSH With Reflex To FT4 05/09/2022 [facility] TSH With Reflex To FT4 1.94 uIU/mL (0.4-4.2 ) TSH 01/24/2022 [facility] TSH 2.58 uIU/mL (0.4-4.2 ) Free T3 01/24/2022 [facility] Free T3 2.9 pg/mL (2.3-5.0 ) Free T4 01/24/2022 [facility] Free T4 0.83 ng/dL (0.70-1. 80) 1 Creatinine based est imated glomerular filtration (eGFR) in adults is calculated using the National Kidney Foundation recommended 2020 CKD-EPI equation. Estimates GFR from serum creatinine, age and sex. 2 MONITORING: In known diabetic patients, hemoglobin A1c targets should be discussed with health care provider. DIAGNOSTIC USE: The [place] Diabetes Association (ADA) and the World Health [...] and sex. Procedures Date Code Description Status 08/07/2024 83134 Collection Of Venous Blood B y Venipuncture Completed 04/05/2024 10639 Collection Of Venous Blood B y Venipuncture Completed 12/06/2023 95804 Collection Of Venous Blood B y Venipuncture Completed 04/12/2023 40752 Collection Of Venous Blood B y Venipuncture Completed 12/14/2022 40096 Collection Of Venous Blood B y Venipuncture Completed 08/26/2022 05058 Collection Of Venous Blood B y Venipuncture Completed 05/09/2022 25402 Collection Of Venous Blood B y Venipuncture Completed 01/24/2022 48938 Collection Of Venous Blood B y Venipuncture Completed Medical Devices Description No Information Available Encounters Type Date Location Provider Dx Diagnosis Office Visit 12/12/2024 3:15p Main Office Lilia Yee M.D. E05.00 Thyrotoxicosis w diffuse goiter w/o thyrotoxic crisis Assessments Date Code Description Provider 12/12/2024 E05.00 Thyrotoxicosis w ith diffuse goiter without thyrotoxic crisis or storm Lilia Yee M.D. Plan of Treatment Future Appointment(s):* 03/28/2025 3:00 pm - Lilia Yee M.D. 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 Created [address] [place] [address] Drive [address] [place] [address] [phone] Lilia Yee M.D. Created [address] [place] [address] [place] [address] [phone] Lilia Yee M.D. Created [address] [place] [address] [place] [address] [phone] Lilia Yee M.D. Created [address] [place] [address] [place] [address] [phone]
--- OUTSIDE RECORDS SUMMARY | 2024-12-25 15:51 | XMS_ITS | Patient Health Record ---
Author Organization [facility] Address [address] [place] [address] Care Team Providers Care Mine Superintendent Name Role Phone Surjit (RETIRED) Geraldo VALLE Primary Care Provide Willie Espana Jr Unavailable Allergies Allergen (clinical drug ingredient) Drug/Non Drug Allergy documented on EMR Reaction Allergy Type Onset Date Status Chlorpheniramine Maleate Unknown Drug Allergy Active Reason For Referral No Information Medications Medication SIG (Take, Route, Fr equency, Duration) Notes Start Date End Date Status MoviPrep 100 GM as directed Orally 10/01/2014 Active Lisinopril 2.5 MG 1 tablet Orally Once a day Active Problems Problem Type SNOMED Code ICD Code Onset Dates Problem Status W/U Status Risk Notes Problem [id number] Colon cancer screening (V76.51) Active confirmed Plan Of Treatment Future Test Test Name Order Date COLONOSCOPY 10/01/2014 Insurance Providers Payer Name Payer Address Payer Phone Subscriber Number Group Number Insured Name Patient Relationship to Insured Coverage Start Date Coverage End Date [facility] [address] [place] [address] [id number] BRITTNI FOOTE Self - patient is the insured Medical (General) History Medical History History ICD Code breast cancer status post radiation ther apy hypertension Surgical History Surgery Date(Month/Year) lumpectomy, right breast, with axillary node dissection
--- OUTSIDE RECORDS SUMMARY | 2024-12-25 15:51 | XMS_ITS | Encounter Summary ---
Author Organization [facility] Address [address] [facility] [address] [place] [address] Phone Care Team Providers Care Foreclosure Paralegal Name Role Phone Geraldo Eddy MD Primary Care Provider Talia Ruiz MD Unavailable [phone] Gokul Sims [facility] Unavailable + [phone] Sesar Rg MD Unavailable [phone] Lilia Yee MD Unavailable + Encounter Details Date Type Department Care Team (Late st Contact Info) Description 03/23/2020 Procedure Pass [facility] [place], Mammography, [place] Imaging Department [address] [place] [address] Social History Tobacco Use Types Packs/Day Years Used Date Smoking Tobacco: Every Day Alcohol Use Standard Drinks/Week Comments Not Asked 0 (1 standard drink = 0.6 oz pur e alcohol) Comments Unknown Sex and Gender Information Value Date Recorded Sex Assigned at Not on file Legal Sex Female 5:39 PM EST Gender Identity Not on file Sexual Orientation Not on file documented as of this encounter Plan of Treatment Not on file documented as of this encounter Visit Diagnoses Not on filedocumented in this encounter Care Teams Foreclosure Paralegal Relationship Specialty Start Date End Date Geraldo Eddy MD [address] [place] [address] [place] [address] PCP - General 10/09/14 Talia Ruiz MD [address] [place] [address] [email or web address] Oncology 03/05/18 Gokul Sims CNP [address] [place] [id number] [email or web address] Nurse Practitioner Oncology 04/19/19 Sesar Rg MD [address] [place] [address] Cardiology 04/19/19 Lilia Yee MD [address] [place] [address] Dr BOOTHE [address] [place] [address] Endocrinology 04/19/19 documented as of this encounter Additional Source Comments The information contained in this document represents components of the legal health record. It is not the complete legal health record.[facility]
== END 2024-12-25 16:09 | disposition home or self-care (01) ==
LOC: HO.HMCHD 15:38
PROVIDERS: PCP Internal Medicine; Visit Provider Internal Medicine
DX: I10 Essential (primary) hypertension (principal); I48.0 Paroxysmal atrial fibrillation

== ENCOUNTER 2024-12-26 14:24 | Outpatient (AMB) | payer BC, SELFPAY ==
--- OUTSIDE RECORDS SUMMARY | 2024-12-26 14:31 | XMS_ITS | Encounter Summary ---
Author Organization [facility] Address [address] [facility] [address] [place] [address] Phone Care Team Providers Care Pari Mutuel Ticket Seller Name Role Phone Geraldo Eddy MD Primary Care Provider Talia Ruiz MD Unavailable [phone] Gokul Sims [facility] Unavailable + [phone] Sesar Rg MD Unavailable [phone] Lilia Yee MD Unavailable + Encounter Details Date Type Department Care Team (Late st Contact Info) Description 03/23/2020 Procedure Pass [facility] [place], Mammography, [place] Imaging Department [address] [place] [address] Social History Tobacco Use Types Packs/Day [...] on filedocumented in this encounter Care Teams Pari Mutuel Ticket Seller Relationship Specialty Start Date End Date Geraldo Eddy MD [address] [place] [address] [place] [address] PCP - General 10/09/14 Talia Ruiz MD [address] [place] [address] [email or web address] Medical Oncology 03/05/18 Gokul Sims CNP [address] [place] [address] [email or web address] Nurse Practitioner Oncology 04/19/19 Sesar Rg MD [address] [place] [address] Cardiology 04/19/19 Lilia Yee MD [address] [place] [address] Dr BOOTHE [address] [place] [address] Endocrinology 04/19/19 documented as of this encounter Additional Source Comments The information contained in this document represents components of the legal health record. It is not the complete legal health record.[facility]
--- OUTSIDE RECORDS SUMMARY | 2024-12-26 14:32 | XMS_ITS | Patient Health Record ---
Author Organization [facility] Address [address] [place] [address] Care Team Providers Care Supervisor Shipfitters Name Role Phone Surjit (RETIRED) Geraldo VALLE [...] Problem Status W/U Status Risk Notes Problem [id number] Colon cancer screening (V76.51) Active confirmed Plan Of Treatment Future Test Test Name Order Date COLONOSCOPY 10/01/2014 Insurance Providers Payer Name Payer Address Payer Phone Subscriber Number Group Number Insured Name Patient Relationship to Insured Coverage Start Date Coverage End Date [facility] [address] [place] [address] [id number] BRITTNI FOOTE Self - patient is the insured Medical (General) History Medical History History ICD Code breast cancer status post radiation ther apy hypertension Surgical History Surgery Date(Month/Year) lumpectomy, right breast, with axillary node dissection
--- OUTSIDE RECORDS SUMMARY | 2024-12-26 14:32 | XMS_ITS | Continuity of Care Document ---
Author Organization [facility] [address] [facility] [address] [place] [address] Phone [phone] Problems Active Problems Provider Date Carcinoma of [...] Medications SIG Qnty Indications Ordering Provider Date Tmmiagocwan61ac Tablets Take One Half Tablet By Mouth 6 X Week 90tabs Lilia Yee M.D. 01/14/2022 Qldvpes0lm Tablets Take One Tablet By Mouth Twice A Day Unknown Gmguukyspn3td Tablets Take 2 Tablets By Mouth In [...] <pending> TSH With Reflex To FT4 07/11/2023 [facility] TSH With Reflex To FT4 2.09 uIU/mL (0.4-4.2 ) TSH With Reflex To FT4 04/13/2023 [facility] TSH With Reflex To FT4 <pending> Basic Metabolic Panel 04/12/2023 [facility] Glucose 90 mg/dL (70-99) BUN 15 mg/dL (8-23) Creatinine 0.7 mg/dL (0.5-1.0 ) Sodium 143 mmol/L (133-145 ) Potassium 5.3 mmol/L High (3.6-5.2 ) Chloride 106 mmol/L (98-107) Bicarbonate 26 mmol/L (22-29) Anion Gap 11 (4-17) Calcium 10.1 mg/dL (8.6-10. 5) Estimated GFR Creatinine 87 ML/MIN/1.7 3M2 1 Free T4 04/12/2023 [facility] Free T4 0.83 ng/dL (0.70-1. 80) TSH With Reflex To FT4 04/12/2023 [facility] TSH With Reflex To FT4 4.83 uIU/mL High (0.4-4.2 ) Complete Abc With Diff 04/12/2023 [facility] WBC 8.0 K/MM3 (4.0-11. [...] ) Lymph # 2.7 K/MM3 (0.8-3.1 ) Bertie# 0.7 K/MM3 (0.4-0.9 ) Eo # 0.1 K/MM3 (0.0-0.4 ) Baso # 0.0 K/MM3 (0.0-0.1 ) Abs. Imm Gran 0.0 K/MM3 Neut 54.9 % (44-76) Lymph 34.1 % (15-43) Monocyte 8.4 % (4.5-10. 5) Eo 1.8 % (0-6) Baso 0.5 % (0-2) Imm Gran 0.3 % Hemoglobin A1c 04/12/2023 [facility] Hemoglobin A1c 6.8 % High (4.0-5.6 ) 2 TSH With Reflex To FT4 12/15/2022 [facility] TSH With Reflex To FT4 <pending> TSH With Reflex To FT4 12/14/2022 [facility] TSH With Reflex To FT4 0.06 uIU/mL Low (0.4-4.2 ) Free T4 12/14/2022 [facility] Free T4 1.51 ng/dL (0.70-1. 80) TSH With Reflex To FT4 08/26/2022 [facility] TSH With Reflex To FT4 1.11 uIU/mL (0.4-4.2 ) Free T3 08/26/2022 [facility] Free T3 2.5 pg/mL (2.3-5.0 ) Free T4 08/26/2022 [facility] Free T4 0.84 ng/dL (0.70-1. 80) Comprehensive Metabolic Panl 05/09/2022 [facility] Glucose 96 mg/dL (70-99) [...] 3 TSH With Reflex To FT4 05/09/2022 [facility] TSH With Reflex To FT4 1.94 uIU/mL (0.4-4.2 ) TSH 01/24/2022 [facility] TSH 2.58 uIU/mL (0.4-4.2 ) Free T3 01/24/2022 [facility] Free T3 2.9 pg/mL (2.3-5.0 ) Free T4 01/24/2022 [facility] Free T4 0.83 ng/dL (0.70-1. 80) 1 Creatinine based est imated glomerular filtration (eGFR) in adults is calculated using the National Kidney Foundation recommended 2020 CKD-EPI equation. Estimates GFR from serum creatinine, age and sex. 2 MONITORING: In known diabetic patients, hemoglobin A1c targets should be discussed with health care provider. DIAGNOSTIC USE: The [place] Diabetes [employer] (ADA) and the World Health [...] sex. Procedures Date Code Description Status 08/07/2024 89316 Collection Of Venous Blood B y Venipuncture Completed 04/05/2024 11179 Collection Of Venous Blood B y Venipuncture Completed 12/06/2023 55034 Collection Of Venous Blood B y Venipuncture Completed 04/12/2023 27770 Collection Of Venous Blood B y Venipuncture Completed 12/14/2022 71547 Collection Of Venous Blood B y Venipuncture Completed 08/26/2022 10925 Collection Of Venous Blood B y Venipuncture Completed 05/09/2022 83618 Collection Of Venous Blood B y Venipuncture Completed 01/24/2022 13168 Collection Of Venous Blood B y Venipuncture [...] Appt Geraldo e Lilia Yee M.D. Created [address] [place] [address] Drive [address] [place] [address] [phone] Lilia Yee M.D. Created [address] [place] [address] [place] [address] [phone] Lilia Yee M.D. Created [address] [place] [address] [place] [address] [phone] Lilia Yee M.D. Created [address] [place] [address] [place] [address] [phone]
--- NOTE | 2024-12-26 14:42 | A.OFFVIS_ITS ---
Vital Signs 12/26/24 14:43 Height 4 ft 10 in Weight 84 lb 3.465 oz BMI 17.6 BP 138/80 Blood Pressure Location Lt brachial Position Sitting Pulse 75 Pulse Source Monitor Intake Visit Reasons: 6m follow up Telephone Maintainer Required: No Allergies chlorpheniramine (CHLORPHENIRAMINE) Allergy (Unknown, Verified 12/26/24 14:45) HIVES Medication List - Last Reconciled 12/26/24 by Luh Steiner, CHIP-C apixaban (Eliquis) 5 mg PO BID aspirin 81 mg PO DAILY lisinopril 5 mg orally 2 tablets in am and 1 tablet in pm; 30 days methimazole 2.5 mg PO DAILY metoprolol succinate ER 25 mg PO DAILY HPI HPI 6m follow up: Details: Suzanne is a 79-year-old female with past medical history hypertension, hyperthyroid, persistent atrial fibrillation, CVA who presents for follow-up. Today she reports that she is feeling well. She has no new neurological symptoms. She has been taking her Eliquis 5 mg b.i.d. as directed. No bleeding issues reported. No chest discomfort at rest or with activity. No shortness of breath, palpitations, presyncope, syncope, falls. No PND, orthopnea or edema. Takes all meds as directed. 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 She still rides and cares for her own horse as well. [facility] Medical History Hyperthyroidism Essential hypertension PAF (paroxysmal atrial fibrillation) Surgical History History of tonsillectomy History of lumpectomy of right breast Family History Father No problems noted. Mother No problems noted. Social History Housing: House Alcohol intake: never Patient Tobacco Use Status: Current everyday Tobacco user e-Cigarette/Vaping Use: Currently Using service: No Current occupational status: retired Cognitive needs: No Hearing needs: No Vision needs: No Review of Systems ENT Reports dizziness Card Denies chest pain, Denies chest pain at rest, Denies chest pain with activity, Denies rapid heart rate, Denies pedal edema, Denies edema, Denies leg edema, Denies lightheadedness, Denies palpitations, Denies dyspnea, Denies dyspnea on exertion and Denies orthopnea Resp Denies cough, Denies dyspnea and Denies dyspnea on exertion GI Denies hematochezia and Denies change in stool character Musc Denies abnormal gait, Reports limited range of motion, Reports muscle cramps, Denies muscle weakness, Denies numbness, Denies radiating pain into limb, Denies stiffness and Denies tingling Neuro Denies abnormal gait, Reports dizziness, Denies numbness and Denies tingling Endo Denies palpitations Physical Exam Vital Signs: Last Vital Signs Pulse 75 12/26/24 14:43 BP 138/80 12/26/24 14:43 BMI result Body Mass Index 17.6 Const Other: Thin built, petite General: cooperative, healthy appearing, comfortable and no acute distress Orientation/consciousness: patient oriented x3 Neck Neck: Yes normal visual inspection Resp Effort & Inspection: normal respiratory effort Auscultation: clear to auscultation bilaterally, no rales, no rhonchi and no wheezes Cardio Rate: regular rate Rhythm: abnormal rhythm Heart sounds: S1 normal heart sound present, S2 normal heart sound present, no murmurs and no rubs Neuro General: patient oriented x3 Extrem General: Yes normal to inspection Psych Appearance: grossly normal Mental Status: mental status grossly normal Speech and movement: Normal speech and movement present Office Procedures EKG Details: Today, read by me, atrial fibrillation, left anterior fascicular block, can not exclude prior anterior septal infarct, rate 75, QTC 435 millisecond [id number], Complete Assessment & Plan Assessment & Plan (1) Persistent atrial fibrillation: Code(s): I48.19 - Other persistent atrial fibrillation Category: Medical Plan: History of persistent atrial fibrillation that is treated with heart rate control using Metoprolol. EKG done today showing atrial fibrillation, rate 75. She is on Eliquis for anticoagulation. She has a history of reducing her Eliquis dose down to 2.5 mg b.i.d on her own since her weight is so low. Then in November 2022 she was admitted for speech disturbances and MRI of the brain confirmed an acute cortical infarct in the vascular territory of the left mid cerebral artery. She is now on her Eliquis 5 mg b.i.d. in addition to aspirin. No bleeding issues reported. Last echocardiogram was done 01/16/23 showing EF 55-60%, mild LVH, mild MR and mild TR. Nuclear stress test was done 01/16/2023 showing normal myocardial perfusion imaging. No med changes made at this time. Cardiology follow-up in 6 months, sooner if needed. (2) Embolic cerebral infarction: Code(s): I63.40 - Cerebral infarction due to embolism of unspecified cerebral artery Category: Medical Qualifiers: Laterality of affected vessel: left Precerebral and cerebral artery: middle cerebral artery Qualified Code(s): I63.412 - Cerebral infarction due to embolism of left middle cerebral artery Plan: As above (3) Essential hypertension: Code(s): I10 - Essential (primary) hypertension Category: Medical Plan: Blood pressure goal less than 130/80. Near goal today. She has all her labs done at [facility] and not [facility] [place]. Will reach out to get the most recent electrolytes. Continue metoprolol 25 mg daily and lisinopril 5 mg tablets 2 in the a.m. and 1 in the p.m.. (4) Chronic anticoagulation: Code(s): Z79.01 - penitentiary (current) use of anticoagulants Category: Medical Plan: As above Plan Time spent on chart review, documentation, interview and assessment Coding Level of Care Code Est Pt Level 3 (08918) Complex EM visit Add On G2211 Diagnoses Persistent atrial fibrillation I48.19 Cerebral infarction due to embolism of left middle cerebral artery I63.412 Laterality of affected vessel: left Precerebral and cerebral artery: middle cerebral artery Essential hypertension I10 Chronic anticoagulation Z79.01 CPT Codes EKG - CPT: [id number], Complete ([id number]) Time Spent (min) 24
[2024-12-26 14:43] VITALS: BP 138/80; PULSE 75; BMI 17.6
== END 2024-12-26 15:14 | disposition home or self-care (01) ==
LOC: HO.HCS 14:25
PROVIDERS: PCP Internal Medicine; Visit Provider Nurse Practitioner Family
DX: I48.19 Other persistent atrial fibrillation (principal); I63.412 Cerebral infarction due to embolism of left middle cerebral artery; I10 Essential (primary) hypertension; Z79.01 Long term (current) use of anticoagulants
CPT/HCPCS: 99213

== ENCOUNTER → 2024-12-26 14:24 | Outpatient (BNVA) | payer BC, SELFPAY | PROVIDERS: PCP Internal Medicine; Visit Provider Nurse Practitioner Family | DX: I10 Essential (primary) hypertension (principal); I48.19 Other persistent atrial fibrillation; I44.4 Left anterior fascicular block; I63.412 Cerebral infarction due to embolism of left middle cerebral artery; Z79.01 Long term (current) use of anticoagulants | CPT/HCPCS: 93005 ==